=== PATIENT | female | born 1935 | race Caucasian/White ===

== ENCOUNTER 2022-05-16 11:03 | Emergency (ER) | payer MEDICARE, BC, SELFPAY ==
[2022-05-16 11:16] VITALS: BP 124/66; PULSE 63; RESP 18; TEMP 36.2; O2SAT 99; BMI 29.1
[2022-05-16 12:14] LABS: PCR FLU A Negative PCR FLU A (Negative); PCR FLU B Negative PCR FLU B (Negative); PCR RSV Negative PCR RSV (Negative)
[2022-05-16 12:17] LABS: SARS PCR* Negative SARS-CoV-2 (Negative)
--- NOTE | 2022-05-16 13:06 | ED.NURSE ---
was informed of negative tests-swabs per dmitri wright rn.
--- NOTE | 2022-05-16 13:24 | ED.GENADULT ---
HPI - General Adult General Date Seen: 05/16/22 Chief complaint: Unspecified Complaint, Adult Stated complaint: Sore throat Time Seen by Provider: 05/16/22 11:18 Source: patient and family History of Present Illness HPI narrative: Patient is an 87-year-old woman who is here with her daughter. Her daughter has a sore throat and some congestion. Apparently someone at their apartment complex has COVID. Her daughter is being tested for COVID and felt that her mother should be tested as well. Patient herself does not have any symptoms. She is being tested because her daughter wants her to. Related Data Home Medications Medication Instructions Recorded Confirmed albuterol sulfate 90 mcg/actuation 2 puff inhalation Q4H PRN 05/16/22 05/16/22 aerosol inhaler (Ventolin HFA) aspirin 81 mg capsule 81 mg PO DAILY 05/16/22 05/16/22 escitalopram oxalate 5 mg tablet 5 mg PO DAILY 05/16/22 05/16/22 famotidine 20 mg tablet 20 mg PO DAILY 05/16/22 05/16/22 furosemide 20 mg tablet 20 mg PO DAILY 05/16/22 05/16/22 losartan 100 mg tablet 100 mg PO DAILY 05/16/22 05/16/22 Allergies Allergy/AdvReac Type Severity Reaction Status Date / Time No Known Drug Allergies Allergy Verified 05/16/22 11:22 [facility] Social History Smoking Status: Never smoker Do you use any of these nicotine containing products: None Second hand tobacco smoke exposure: No How often do you have a drink containing alcohol: never AUDIT-C Alcohol total score: 0 Non-prescribed substance use: denies use Exam Narrative: Exam Narrative: Vital signs as noted above. In general, an alert, well-appearing patient. Head: Normocephalic, atraumatic. Eyes: Pupils are equal reactive. Extraocular movements are full. Conjunctivae are normal. ENT: Mucous membranes are moist. Throat is normal. Neck: Supple without lymphadenopathy. Heart: Regular rate and rhythm. No murmur or rub. Lungs: Clear bilaterally. No increased work of breathing, crackles or wheezes. Extremities: Well perfused. No edema. No calf tenderness. Pulses intact. Neurologic: Patient is alert and oriented to person and place. Speech is fluent. Face is symmetric. Moves all extremities equally. Affect: Normal. Skin: Warm and dry. Well perfused. Const: Vital Signs, click to edit/add: Vital Signs - 24 hr 05/16/22 11:16 Temperature 97.2 F L Pulse Rate [Pulse Oximeter] 63 Respiratory Rate 18 Blood Pressure [Ri ght Upper Arm] 124/66 Pulse Oximetry 99 Oxygen Delivery Me thod Room Air Documenting provider has reviewed patient's vital signs: yes Course Course Hospital Course: Patient is very pleasant, well-appearing. She is asymptomatic. We did do a triple swab. They are going to leave and will call with results. Patient does have a history of renal insufficiency, but she is not interested in doing a creatinine here. Understands that on the off chance her COVID test is positive that if she wants to start Paxlovid she would need to check in with her primary doctor and get a creatinine done before that could be prescribed. Vital Signs Vital signs: Initial Vital Signs Temperature 97.2 F L 05/16/22 11:16 Temperature Source Temporal Artery Scan 05/16/22 11:16 Pulse Rate 63 05/16/22 11:16 Respiratory Rate 18 05/16/22 11:16 Blood Pressure 124/66 05/16/22 11:16 Blood Pressure Mean 85 05/16/22 11:16 Blood Pressure Position Sitting 05/16/22 11:16 Pulse Oximetry 99 05/16/22 11:16 Oxygen Delivery Method 05/16/22 11:16 Vital Signs Temperature 97.2 F L 05/16/22 11:16 Pulse Rate 63 05/16/22 11:16 Respiratory Rate 18 05/16/22 11:16 Blood Pressure 124/66 05/16/22 11:16 Pulse Oximetry 99 05/16/22 11:16 Oxygen Delivery Method 05/16/22 11:16 Temperature 97.2 F L 05/16/22 11:16 Pulse Rate 63 05/16/22 11:16 Respiratory Rate 18 05/16/22 11:16 Blood Pressure 124/66 05/16/22 11:16 Pulse Oximetry 99 05/16/22 11:16 Oxygen Delivery Method 05/16/22 11:16 Medical Decision Making Lab Data Labs: Lab Results 05/16/22 Range/Units 11:27 SARS-CoV-2 (PCR) Negative SARS-CoV-2 (Negative) Influenza Type A (PCR) Negative PCR FLU A (Negative) Influenza Type B (PCR) Negative PCR FLU B (Negative) RSV (PCR) Negative PCR RSV (Negative) Discharge Plan Discharge Clinical Impression: Exposure to COVID-19 virus Patient Disposition: Home, Self-Care Condition: Stable Instructions: COVID-19 (Coronavirus Disease 2019) (ED) Additional Instructions: If COVID test is positive, you would be a candidate for Paxlovid. However, with your history of renal disease, you would need a creatinine drawn to determine the appropriate dose. Therefore, you would need to talk with your primary doctor to get this drawn and have that medication prescribed through your primary clinic in the next 1-2 days. This medication should be started within 5 days of symptom onset. Prescriptions: No Action losartan 100 mg tablet 100 mg PO DAILY Label Comments: TAKE 1 TABLET (100 MG) BY MOUTH ONCE DAILY. furosemide 20 mg tablet 20 mg PO DAILY Label Comments: TAKE 1 TABLET (20 MG) BY MOUTH EVERY MORNING. aspirin 81 mg capsule 81 mg PO DAILY famotidine 20 mg tablet 20 mg PO DAILY albuterol sulfate [Ventolin HFA] 90 mcg/actuation HFA aerosol inhaler 2 puff INHALATION Q4H PRN Label Comments: INHALE 1-2 PUFFS BY MOUTH EVERY 4 HOURS IF NEEDED FOR SHORTNESS OF BREATH OR WHEEZING. escitalopram oxalate 5 mg tablet 5 mg PO DAILY Label Comments: TAKE 1 TABLET (5 MG) BY MOUTH EVERY MORNING. Follow Up/Referrals: Provider,Not a Local [Primary Care Provider] - Stand Alone Forms: [employer] Info Instructions
== END 2022-05-16 12:10 | disposition home or self-care (01) ==
LOC: ED 11:53
PROVIDERS: Emergency Provider Emergency Medicine
DX: Z20.822 Contact with and (suspected) exposure to COVID-19 (principal)
CPT/HCPCS: 87502; 87634; 87635; 99282; 99283

== ENCOUNTER 2023-02-02 11:02 | Outpatient (CLI) | payer MEDICARE, BC, SELFPAY | END 2023-02-02 11:03 | disposition home or self-care (01) | PROVIDERS: Visit Provider Family Medicine | DX: I10 Essential (primary) hypertension (principal); N18.4 Chronic kidney disease, stage 4 (severe); D63.1 Anemia in chronic kidney disease; E78.2 Mixed hyperlipidemia; F41.1 Generalized anxiety disorder | CPT/HCPCS: 80048; 80061; 84439; 84443; 85025 ==

== ENCOUNTER 2023-08-15 09:32 | Outpatient (CLI) | payer MEDICARE, BC, SELFPAY | END 2023-08-15 09:33 | disposition home or self-care (01) | PROVIDERS: PCP Family Medicine; Visit Provider Family Medicine | DX: I10 Essential (primary) hypertension (principal); N18.4 Chronic kidney disease, stage 4 (severe); D63.1 Anemia in chronic kidney disease | CPT/HCPCS: 80048; 85025 ==

== ENCOUNTER 2023-08-23 16:23 | Outpatient (CLI) | payer MEDICARE, BC, SELFPAY ==
--- NOTE | 2023-08-23 16:45 | CT_ITS ---
Patient: NIGEL WHEELER Facility:?[facility] Patient ID:?[id number] Site Patient ID:?[id number]. Site :?[id number] Study:?CT-Extremity Left SHOULDER W/O-08/23/2023 5:28:09 PM Ordering Physician:JOSE J Final Report: EXAM: CT OF THE LEFT SHOULDER, WITHOUT CONTRAST CLINICAL INDICATION: Greater tuberosity fracture and recent anterior dislocation. COMPARISON PLAIN FILMS: 08/17/2023. COMPARISON CROSS-SECTIONAL IMAGING STUDIES: None. TECHNICAL: CT of the shoulder with axial images. Sagittal oblique and coronal oblique images were created. FINDINGS: OSSEOUS STRUCTURES: Humerus: Fracture of the majority of the greater tuberosity with slight spurring anteriorly. The greater tuberosity fracture fragment is displaced superiorly to 2 cm and posteriorly 2 0 cm. No fracture in the posterior superior humeral head. No lesser tuberosity fracture. Small amount of cystic change at the lesser tuberosity. Glenoid: No fracture including the anterior inferior glenoid. Acromion, Scapular body, Clavicle and Ribs: No fracture or osseous lesion. GLENOHUMERAL JOINT: Joint Fluid: Glenohumeral joint effusion. No calcific loose body. Joint Space: Mild hypertrophic change without joint space narrowing. MUSCLES: Rotator Cuff: No muscle atrophy. Other Muscles: No intramuscular hematoma. No muscle atrophy. CORACOACROMIAL ARCH: Morphology: Type 2 acromion. Mild lateral downsloping. Small subacromial enthesophyte. Acromiohumeral Interval: Normal. Coracohumeral Interval: Normal. Bursa: No fluid in the subacromial subdeltoid bursa. ACROMIOCLAVICULAR JOINT: Moderate arthropathy. SOFT TISSUES: There is a hematoma with fluid fluid level in the axilla anterior to the subscapularis, lateral to the brachial plexus and posterior to the pectoralis major that measures 3.5 x 3.4 x 3.9 cm in size. IMPRESSION: 1. Displaced greater tuberosity fracture. 2. No glenoid fracture. 3. Hematoma in the axilla. 4. Mild hypertrophic change of the glenohumeral joint. 5. Moderate arthropathy of the acromioclavicular joint. 6. Mild lateral downsloping of the acromion and small subacromial enthesophyte. Please note that all CT scans at this facility use dose modulation, iterative reconstruction, and/or weight-based dosing when appropriate to reduce radiation dose to as low as reasonably achievable. Dictated by Shorty Denis MD @ 08/24/2023 8:30:23 AM Signed by:?Shorty Denis MD @08/24/2023 8:30:23 AM (Electronic Signature)
== END 2023-08-23 16:24 | disposition home or self-care (01) ==
LOC: CT 16:24
PROVIDERS: Visit Provider Physician Assistant
DX: S42.302A Unspecified fracture of shaft of humerus, left arm, initial encounter for closed fracture (principal)
CPT/HCPCS: 73200

== ENCOUNTER 2023-11-16 11:19 | Outpatient (CLI) | payer MEDICARE, BC, SELFPAY | END 2023-11-16 11:20 | disposition home or self-care (01) | LOC: NFLDREF 11:19 | PROVIDERS: PCP Family Medicine; Visit Provider Family Medicine | DX: N18.4 Chronic kidney disease, stage 4 (severe) (principal) | CPT/HCPCS: 80048 ==

== ENCOUNTER 2023-11-22 10:28 | Emergency (ER) | payer MEDICARE, BC, SELFPAY ==
[2023-11-22 10:45] VITALS: BP 115/67; PULSE 74; RESP 16; TEMP 36.9; O2SAT 94; BMI 27.1
--- NOTE | 2023-11-22 11:30 | ED_ITS ---
HPI - Dizziness General Chief Complaint: Dizziness/Vertigo Stated Complaint: dizzy, fell, previously had covid Time Seen by Provider: 11/22/23 11:13 History of Present Illness HPI Narrative: This 88-year-old female comes in reporting some intermittent episodes of vertigo. He has been in current over the past several days. She has not fallen but has felt unsteady when this occurs and has had to correct herself to prevent a fall. She states that she does not feel these symptoms all the time. It seems to occur more when getting up from a sitting or lying position. She recently had COVID and did take a medicine but has completed that course. She does not report any visual changes or speech changes. She does not have any unilateral weakness. She does not report a headache. She normally uses a walker for ambulating. Related Data Home Medications ?Medication ?Instructions ?Recorded ?Confirmed aspirin 81 mg capsule 81 mg PO DAILY 05/16/22 11/16/23 calcium carbonate 1,000 mg PO DAILY 01/28/23 11/16/23 loperamide 2 mg capsule 2 mg PO .as needed PRN 01/28/23 11/16/23 multivitamin 1 tab PO QDAY 01/28/23 11/16/23 vitamin E mixed 400 unit capsule 400 unit PO QDAY 02/02/23 11/16/23 systaine eye drops instillation TID 02/14/23 11/16/23 Previous Rx's ?Medication ?Instructions ?Recorded albuterol sulfate 90 mcg/actuation 2 puff inhalation Q4H PRN 04/30/23 aerosol inhaler (Ventolin HFA) shortness of breath or wheezing #8.5 grams cyclobenzaprine 5 mg tablet 5 mg PO TID PRN muscle spasm #30 05/11/23 tabs escitalopram oxalate 10 mg tablet 5 mg (1/2 x 10 mg) PO DAILY #45 08/15/23 tabs famotidine 20 mg tablet 20 mg PO DAILY #90 tabs 08/15/23 furosemide 20 mg tablet 20 mg PO DAILY #90 tabs 08/15/23 losartan 100 mg tablet 100 mg PO DAILY #90 tabs 08/15/23 meclizine 25 mg tablet 25 mg PO QID #20 tabs 11/22/23 Allergies Allergy/AdvReac Type Severity Reaction Status Date / Time COY Inhibitors AdvReac Unknown Cough Verified 11/16/23 10:48 Review of Systems Status of ROS: Reports: 10 or more systems reviewed and unremarkable except as noted in History and below Narrative: Constitutional: No fevers, no weight gain or loss. Eyes: No discharge. No vision changes. HENT: No congestion, no sore throat, no ear pain. Cardiovascular: No chest pain, no palpitations. Respiratory: No shortness of breath, no wheezes, no cough. Gastrointestinal: No abdominal pain, no vomiting, no diarrhea. Genitourinary: No dysuria, no hematuria. Musculoskeletal: Normal range of motion. Skin: No rashes, no pruritis. Neurological: No weakness, sensory change, speech change. Vertigo symptoms as described above. Endo/Heme/Allergies: No bruising or bleeding. No polydipsia. Pysch: no suicidality, no anxiety, no insomnia. All other systems reviewed and are negative. [facility] Medical History Depression ?F32.A - Depression, unspecified (ICD-10) Asthma ?J45.909 - Unspecified asthma, uncomplicated (ICD-10) Bilateral knee pain ?M25.561 - Pain in right knee (ICD-10) ?M25.562 - Pain in left knee (ICD-10) Durable power of deputy prosecuting attorney in chart Fuchs' corneal dystrophy of both eyes ?H18.513 - Endothelial corneal dystrophy, bilateral (ICD-10) Hearing loss ?H91.90 - Unspecified hearing loss, unspecified ear (ICD-10) Mild intermittent asthma without complication ?J45.20 - Mild intermittent asthma, uncomplicated (ICD-10) Osteoporosis ?M81.0 - Age-related osteoporosis without current pathological fracture (ICD- 10) Age-related cognitive decline ?R41.81 - Age-related cognitive decline (ICD-10) Secondary hyperparathyroidism ?N25.81 - Secondary hyperparathyroidism of renal origin (ICD-10) Anemia in chronic kidney disease ?N18.9 - Chronic kidney disease, unspecified (ICD-10) ?D63.1 - Anemia in chronic kidney disease (ICD-10) Stage 4 chronic kidney disease ?N18.4 - Chronic kidney disease, stage 4 (severe) (ICD-10) Lumbar spinal stenosis ?M48.061 - Spinal stenosis, lumbar region without neurogenic claudication (ICD-10) Schatzki's ring of distal esophagus ?K22.2 - Esophageal obstruction (ICD-10) Generalized anxiety disorder ?F41.1 - Generalized anxiety disorder (ICD-10) Irritable bowel syndrome (IBS) ?K58.9 - Irritable bowel syndrome without diarrhea (ICD-10) GERD (gastroesophageal reflux disease) ?K21.9 - Gastro-esophageal reflux disease without esophagitis (ICD-10) Mixed hyperlipidemia ?E78.2 - Mixed hyperlipidemia (ICD-10) Primary hypertension ?I10 - Essential (primary) hypertension (ICD-10) Surgical History Swallowing study performed ?Z13.810 - Encounter for screening for upper gastrointestinal disorder (ICD- 10) History of esophagogastroduodenoscopy (EGD) (09/21/22) ?Z98.890 - Other specified postprocedural states (ICD-10) History of abdominal hysterectomy (2008) ?Z90.710 - Acquired absence of both cervix and uterus (ICD-10) History of hammer toe correction (08/17/21) ?Z98.890 - Other specified postprocedural states (ICD-10) ?Z87.39 - Personal history of other diseases of the musculoskeletal system and connective tissue (ICD-10) History of corneal transplant ?Z94.7 - Corneal transplant status (ICD-10) History of total bilateral knee replacement ?Z96.653 - Presence of artificial knee joint, bilateral (ICD-10) History of cataract surgery (09/25/07) ?Z98.49 - Cataract extraction status, unspecified eye (ICD-10) Social History Narrative: , six kids, retired, nonsmoker, no EtOH What is your current living situation?: I presently have a place to live Problems where you live: no known problems In the past 12 months, utilities in danger of being shut off: no In past 12 months, lack of transportation kept you from medical appts, meetings, work, or getting things needed for daily living: no In the past 12 mos, have been you worried that your food would run out before you had money to buy more?: never true In the past 12 mos, the food you bought just didn't last and you didn't have money to buy more?: never true Smoking Status: Never smoker Do you use any of these nicotine containing products: None Second hand tobacco smoke exposure: No How often do you have a drink containing alcohol: never AUDIT-C Alcohol total score: 0 Non-prescribed substance use: denies use How often does anyone, including family, friends and others, physically hurt you : never How often does anyone, including family, friends and others, insult or talk down to you: never How often does anyone, including family, friends and others, threaten you with harm: never How often does anyone, including family, friends and others, scream or curse at you: rarely Little interest or pleasure in doing things: not at all Feeling down, depressed, or hopeless: several days Exam Narrative: Exam Narrative: Constitutional: Well-developed, well-nourished, no acute distress. HEENT: Normocephalic, atraumatic. Neck: Normal range of motion. Nontender. Supple. Heart: Regular. No murmurs. Normal rate. Intact distal pulses. Lungs: Clear to auscultation. No chest discomfort. No wheezes, rhonchi, or rales. Abdomen: Normal bowel sounds. Nontender. No rebound tenderness. Genitalia: Deferred. Back: No midline tenderness. Normal range of motion. Extremities: Normal range of motion. No injury. Skin: Intact. No rash. Warm. No erythema or pallor. Neurologic: No altered sensation. No weakness. Alert and oriented. No facial asymmetry. Tongue is midline. [id number] is normal. No pronator drift. [employer] strength is equal bilaterally. Able to raise each leg from the bed. Psychiatric: No suicidality. No anxiety or depression. No insomnia. Nursing notes and vitals signs are reviewed. Const: Vital Signs, click to edit/add: Vital Signs - 24 hr 11/22/23 10:45 Temperature 98.4 F Pulse Rate [Right Pulse Oximeter] 74 Respiratory Rate 16 Blood Pressure [Ri ght Upper Arm] 115/67 Pulse Oximetry 94 Oxygen Delivery Me thod Room Air Course Vital Signs Vital signs: Initial Vital Signs Temperature 98.4 F 11/22/23 10:45 Temperature Source Temporal Artery Scan 11/22/23 10:45 Pulse Rate 74 11/22/23 10:45 Pulse Rhythm Regular 11/22/23 10:45 Respiratory Rate 16 11/22/23 10:45 Blood Pressure 115/67 11/22/23 10:45 Blood Pressure Mean 83 11/22/23 10:45 Blood Pressure Position Sitting 11/22/23 10:45 Pulse Oximetry 94 11/22/23 10:45 Oxygen Delivery Method Room Air 11/22/23 10:45 Vital Signs Temperature 98.4 F 11/22/23 10:45 Pulse Rate 74 11/22/23 10:45 Respiratory Rate 16 11/22/23 10:45 Blood Pressure 115/67 11/22/23 10:45 Pulse Oximetry 94 11/22/23 10:45 Oxygen Delivery Method Room Air 11/22/23 10:45 Temperature 98.4 F 11/22/23 10:45 Pulse Rate 74 11/22/23 10:45 Respiratory Rate 16 11/22/23 10:45 Blood Pressure 115/67 11/22/23 10:45 Pulse Oximetry 94 11/22/23 10:45 Oxygen Delivery Method Room Air 11/22/23 10:45 MDM - Dizziness MDM Narrative Medical decision making narrative: This patient comes in reporting some brief episodes of vertigo symptoms over the past few days. She states that she normally does not feel any vertigo symptoms but with certain position her change in activity she does feel some sense of movement or spinning. She has a normal vital signs and normal neurologic exam. She is not showing any sign of central vertigo. Most likely this is a peripheral disturbance. I did discuss lab and imaging options which the patient declined. She did receive an oral dose of meclizine. A prescription for the same is provided also. Discharge Plan Discharge Clinical Impression: Vertigo Patient Disposition: Home w/ Parent or Adult Condition: Stable Additional Instructions: Take medication as needed and directed. Use walker for ambulating. Follow up with MD or return if symptoms are worsening. Prescriptions: New meclizine 25 mg tablet 25 mg PO QID Qty: 20 0RF No Action systaine eye drops instillation TID furosemide 20 mg tablet 20 mg PO DAILY Qty: 90 1RF escitalopram oxalate 10 mg tablet 5 mg PO DAILY Qty: 45 1RF famotidine 20 mg tablet 20 mg PO DAILY Qty: 90 1RF losartan 100 mg tablet 100 mg PO DAILY Qty: 90 1RF calcium carbonate 500 mg calcium (1,250 mg) tablet 1,000 mg PO DAILY loperamide 2 mg capsule 2 mg PO .as needed PRN multivitamin Tablet 1 tab PO QDAY vitamin E mixed 400 unit capsule 400 unit PO QDAY aspirin 81 mg capsule 81 mg PO DAILY albuterol sulfate [Ventolin HFA] 90 mcg/actuation HFA aerosol inhaler 2 puff INHALATION Q4H PRN (Reason: shortness of breath or wheezing) Qty: 8.5 1RF Patient Comments: INHALE 1-2 PUFFS BY MOUTH EVERY 4 HOURS IF NEEDED FOR SHORTNESS OF BREATH OR WHEEZING. cyclobenzaprine 5 mg tablet 5 mg PO TID PRN (Reason: muscle spasm) Qty: 30 0RF Follow Up/Referrals: Blair Fletcher MD [Primary Care Provider] - Stand Alone Forms: [employer] Info Instructions
[2023-11-22] MEDS: MECLIZINE HCL 25 MG TABLET PO (11:37)
== END 2023-11-22 11:45 | disposition home or self-care (01) ==
LOC: ED 11:39
PROVIDERS: Emergency Provider Emergency Medicine Emergency Medical Services; PCP Family Medicine
DX: R42 Dizziness and giddiness (principal)
CPT/HCPCS: 99283; 99284; A9270

== ENCOUNTER 2024-03-08 13:57 | Emergency (ER) | payer MEDICARE, BC, SELFPAY ==
[2024-03-08 14:08] VITALS: BP 123/70; PULSE 97; RESP 20; TEMP 36.6; O2SAT 95; BMI 25.6
--- NOTE | 2024-03-08 14:33 | ED.GENADULT ---
HPI - General Adult General Time Seen by Provider: 14:33 Date Seen: 03/08/24 Chief complaint: Back Injury/Pain Stated complaint: R side pain Time Seen by Provider: 03/08/24 14:26 Source: patient and RN notes reviewed Mode of arrival: ambulatory Limitations: no limitations History of Present Illness HPI narrative: Nigel is an 89-year-old female accompanied by her daughter coming in with left low back pain. She is able to sit up, points to her left low back where her pain is. Went over her upper back and midback, she denies having pain in that area. She denies her back bothering her much with walking. She notes she is having problem getting in and out of bed. She has a recent history of left humerus fracture/dislocation that was managed non operatively, injury happened in July. Her left shoulder is feeling better from that but it is still somewhat sore per her report. She is able to use her cane on that side now however. She started complaining of more right shoulder pain and was going to physical therapy. The thought was she was having overuse of her right side from non use of the left due to the injury. She resides with her daughter and does have help at home. She denies any history of sciatica but her daughter believes she has had before. She is not currently having pain go down either leg, no numbness tingling into her legs. She denies any bowel or bladder issues. No fevers or chills, does not feel the pain is ?inside?. There is no abdominal pain. No pain in her chest. She may have historically been on a statin but she is no longer on 1. Related Data Home Medications ?Medication ?Instructions ?Recorded ?Confirmed aspirin 81 mg capsule 81 mg PO DAILY 05/16/22 02/07/24 calcium carbonate 1,000 mg PO DAILY 01/28/23 03/08/24 loperamide 2 mg capsule 2 mg PO .as needed PRN 01/28/23 03/08/24 vitamin E mixed 400 unit capsule 400 unit PO QDAY 02/02/23 02/07/24 systaine eye drops instillation TID 02/14/23 02/07/24 cholecalciferol (vitamin D3) 50 50 mcg PO QDAY 11/25/23 02/07/24 mcg (2,000 unit) capsule Previous Rx's ?Medication ?Instructions ?Recorded albuterol sulfate 90 mcg/actuation 2 puff inhalation Q4H PRN 04/30/23 aerosol inhaler (Ventolin HFA) shortness of breath or wheezing #8.5 grams furosemide 20 mg tablet 20 mg PO DAILY #90 tabs 08/15/23 meclizine 25 mg tablet 25 mg PO QID #20 tabs 11/22/23 escitalopram oxalate 5 mg tablet 5 mg PO DAILY #90 tabs 02/02/24 famotidine 20 mg tablet 20 mg PO DAILY #90 tabs 02/02/24 losartan 100 mg tablet 100 mg PO DAILY #90 tabs 02/02/24 Allergies Allergy/AdvReac Type Severity Reaction Status Date / Time COY Inhibitors AdvReac Unknown Cough Verified 02/07/24 13:11 Review of Systems Status of ROS: Reports: 6 or more systems reviewed and unremarkable except as noted in History and below [facility] Medical History Depression ?F32.A - Depression, unspecified (ICD-10) Asthma ?J45.909 - Unspecified asthma, uncomplicated (ICD-10) Bilateral knee pain ?M25.561 - Pain in right knee (ICD-10) ?M25.562 - Pain in left knee (ICD-10) Durable power of traffic law attorney in chart Fuchs' corneal dystrophy of both eyes ?H18.513 - Endothelial corneal dystrophy, bilateral (ICD-10) Hearing loss ?H91.90 - Unspecified hearing loss, unspecified ear (ICD-10) Mild intermittent asthma without complication ?J45.20 - Mild intermittent asthma, uncomplicated (ICD-10) Osteoporosis ?M81.0 - Age-related osteoporosis without current pathological fracture (ICD-10) Age-related cognitive decline ?R41.81 - Age-related cognitive decline (ICD-10) Secondary hyperparathyroidism ?N25.81 - Secondary hyperparathyroidism of renal origin (ICD-10) Anemia in chronic kidney disease ?N18.9 - Chronic kidney disease, unspecified (ICD-10) ?D63.1 - Anemia in chronic kidney disease (ICD-10) Stage 4 chronic kidney disease ?N18.4 - Chronic kidney disease, stage 4 (severe) (ICD-10) Lumbar spinal stenosis ?M48.061 - Spinal stenosis, lumbar region without neurogenic claudication (ICD-10) Schatzki's ring of distal esophagus ?K22.2 - Esophageal obstruction (ICD-10) Generalized anxiety disorder ?F41.1 - Generalized anxiety disorder (ICD-10) Irritable bowel syndrome (IBS) ?K58.9 - Irritable bowel syndrome without diarrhea (ICD-10) GERD (gastroesophageal reflux disease) ?K21.9 - Gastro-esophageal reflux disease without esophagitis (ICD-10) Mixed hyperlipidemia ?E78.2 - Mixed hyperlipidemia (ICD-10) Primary hypertension ?I10 - Essential (primary) hypertension (ICD-10) Surgical History Swallowing study performed ?Z13.810 - Encounter for screening for upper gastrointestinal disorder (ICD-10) History of esophagogastroduodenoscopy (EGD) (09/21/22) ?Z98.890 - Other specified postprocedural states (ICD-10) History of abdominal hysterectomy (2008) ?Z90.710 - Acquired absence of both cervix and uterus (ICD-10) History of hammer toe correction (08/17/21) ?Z98.890 - Other specified postprocedural states (ICD-10) ?Z87.39 - Personal history of other diseases of the musculoskeletal system and connective tissue (ICD-10) History of corneal transplant ?Z94.7 - Corneal transplant status (ICD-10) History of total bilateral knee replacement ?Z96.653 - Presence of artificial knee joint, bilateral (ICD-10) History of cataract surgery (09/25/07) ?Z98.49 - Cataract extraction status, unspecified eye (ICD-10) Social History Narrative: , six kids, retired, nonsmoker, no EtOH What is your current living situation?: I presently have a place to live Problems where you live: no known problems In the past 12 months, utilities in danger of being shut off: no In past 12 months, lack of transportation kept you from medical appts, meetings, work, or getting things needed for daily living: no In the past 12 mos, have been you worried that your food would run out before you had money to buy more?: never true In the past 12 mos, the food you bought just didn't last and you didn't have money to buy more?: never true Smoking Status: Never smoker Do you use any of these nicotine containing products: None Second hand tobacco smoke exposure: No How often do you have a drink containing alcohol: never How often do you have six or more drinks on one occasion: Never AUDIT-C Alcohol total score: 0 Non-prescribed substance use: denies use How often does anyone, including family, friends and others, physically hurt you: never How often does anyone, including family, friends and others, insult or talk down to you: never How often does anyone, including family, friends and others, threaten you with harm: never How often does anyone, including family, friends and others, scream or curse at you: rarely Little interest or pleasure in doing things: not at all Feeling down, depressed, or hopeless: several days service: No Exam Const: Vital Signs, click to edit/add: Vital Signs - 24 hr 03/08/24 14:08 Temperature 97.9 F Pulse Rate [Right Radial] 97 Respiratory Rate 20 Blood Pressure [Ri ght Upper Arm] 123/70 Pulse Oximetry 95 Oxygen Delivery Me thod Room Air Nigel is an 89-year-old female that is alert, interactive, no apparent distress, very well kept. She sits up easily in bed on her own, no use of her arms. Takes her left arm and points to her left low back where her pain is. Pupils equal round reactive, sclera clear, face atraumatic, speech normal. She has mild kyphosis, lungs are clear, good air entry, no wheezing or crackles, no tachypnea. She has no midline tenderness through the entirety of her spine. There is left paraspinous tenderness to little further out in closer to the iliac crest where she states there is some reproducible muscular tenderness. No overlying skin change noted. Abdomen is soft, nontender, nondistended, no organomegaly. She can straight leg raise off the bed, can lift each of her legs independently off the bed. There is no evidence of any radiculopathy on examination of her lower extremities. Strength is symmetrical and good throughout both of her lower extremities. Documenting provider has reviewed patient's vital signs: yes Course Course ED Course: Reviewed with patient that we can look at some plain films of her lumbar spine just to see underlying architecture, ensure no new compression fracture. She does not seem to have radiculopathy on history or physical examination which is reassuring. This certainly does seem to be musculoskeletal on physical exam. Reevaluation(s) Time of Reevaluation #1: 16:33 Reevaluation #1: Did review x-ray report with patient. When I went back in, she was fully dressed, is sitting up on the bed, right leg down on the floor left leg stretched out on the bed in front of her. She seems quite comfortable. Did review that there is degenerative changes in her spine but no visible compression fractures. I think that this is more musculoskeletal at this time, certainly no evidence for any radiculopathy. We discussed muscle relaxants but I do have concern at her age that they could increase her risk of falling, she seems rather comfortable. We discussed using conservative management with scheduled Tylenol, she can try some heat to her back and see if this helps, continue with physical therapy which is scheduled on Tuesday. Vital Signs Vital signs: Initial Vital Signs Temperature 97.9 F 03/08/24 14:08 Temperature Source Temporal Artery Scan 03/08/24 14:08 Pulse Rate 97 03/08/24 14:08 Pulse Rhythm Regular 03/08/24 14:08 Respiratory Rate 20 03/08/24 14:08 Blood Pressure 123/70 03/08/24 14:08 Blood Pressure Mean 87 03/08/24 14:08 Pulse Oximetry 95 03/08/24 14:08 Oxygen Delivery Method Room Air 03/08/24 14:08 Vital Signs Temperature 97.9 F 03/08/24 14:08 Pulse Rate 97 03/08/24 14:08 Respiratory Rate 20 03/08/24 14:08 Blood Pressure 123/70 03/08/24 14:08 Pulse Oximetry 95 03/08/24 14:08 Oxygen Delivery Method Room Air 03/08/24 14:08 Temperature 97.9 F 03/08/24 14:08 Pulse Rate 97 03/08/24 14:08 Respiratory Rate 20 03/08/24 14:08 Blood Pressure 123/70 03/08/24 14:08 Pulse Oximetry 95 03/08/24 14:08 Oxygen Delivery Method Room Air 03/08/24 14:08 Medical Decision Making Imaging Data XR lumbar spine: Attestation: I have reviewed the pertinent imaging results. My impression: Did visualize her x-rays, do see some degenerative change but do not appreciate any significant compression fractures. Will await Radiology over-read. Radiologist's impression: Patient: NIGEL WHEELER Facility:?[facility] Patient ID:?[id number] Site Patient ID:?[id number]. Site :?[id number] Study:?XRay-Spine Lumbar 2 VIEW-03/08/2024 3:51:43 PM Ordering Physician:?Evelyn Oleary Final Report: INDICATION: Left low back pain. TECHNIQUE: Lumbar spine 2 views. COMPARISON: None. FINDINGS: Bone demineralization. Leftward convex curvature. Grade 1 anterolisthesis of L3 on L4 and L4 on L5 is likely degenerative. Adwv-gu-rigevafy multilevel degenerative changes of the lumbar spine. No acute or other osseous abnormality. Vascular calcifications. IMPRESSION: Zlag-kt-smroxcrx lumbar degenerative changes. Dictated by Tu Horton MD @ 03/08/2024 4:28:36 PM (Electronic Signature) Discharge Plan Discharge Clinical Impression: Acute lumbar back pain Qualifiers: Back pain laterality: left Sciatica presence: without sciatica Qualified Code(s): M54.50 - Low back pain, unspecified Patient Disposition: Home, Self-Care Condition: Stable Instructions: Acute Low Back Pain (ED) Additional Instructions: Recommend some scheduled Tylenol, can use a 1000 mg 3 times a day right now for pain management. Can try some heat to this area of your back and see if it helps. If heat makes it worse, could see if ice makes it feel better. Continue with physical therapy. If you have further concerns or worsening symptoms, do recommend re-evaluation. Activity Level: Activity as Tolerated Prescriptions: No Action systaine eye drops instillation TID furosemide 20 mg tablet 20 mg PO DAILY Qty: 90 1RF calcium carbonate 500 mg calcium (1,250 mg) tablet 1,000 mg PO DAILY loperamide 2 mg capsule 2 mg PO .as needed PRN vitamin E mixed 400 unit capsule 400 unit PO QDAY cholecalciferol (vitamin D3) 50 mcg (2,000 unit) capsule 50 mcg PO QDAY aspirin 81 mg capsule 81 mg PO DAILY meclizine 25 mg tablet 25 mg PO QID Qty: 20 0RF albuterol sulfate [Ventolin HFA] 90 mcg/actuation HFA aerosol inhaler 2 puff INHALATION Q4H PRN (Reason: shortness of breath or wheezing) Qty: 8.5 1RF Patient Comments: INHALE 1-2 PUFFS BY MOUTH EVERY 4 HOURS IF NEEDED FOR SHORTNESS OF BREATH OR WHEEZING. famotidine 20 mg tablet 20 mg PO DAILY Qty: 90 1RF losartan 100 mg tablet 100 mg PO DAILY Qty: 90 1RF escitalopram oxalate 5 mg tablet 5 mg PO DAILY Qty: 90 1RF Follow Up/Referrals: Blair Fletcher MD [Primary Care Provider] - Stand Alone Forms: [employer] Info Instructions
--- NOTE | 2024-03-08 14:41 | CRLHL7_ITS ---
For Patients: As a result of the Cures Act, medical imaging exams and procedure reports are released immediately into your electronic medical record. You may view this report before your referring provider. If you have questions, please contact your health care provider. INDICATION: Left low back pain. TECHNIQUE: Lumbar spine 2 views. COMPARISON: None. FINDINGS: Bone demineralization. Leftward convex curvature. Grade 1 anterolisthesis of L3 on L4 and L4 on L5 is likely degenerative. Wuod-nb-munqvgul multilevel degenerative changes of the lumbar spine. No acute or other osseous abnormality. Vascular calcifications. IMPRESSION: Xntd-ho-wkowqaak lumbar degenerative changes. Dictated by Tu Horton MD @ 03/08/2024 4:28:36 PM (Electronically Signed)
== END 2024-03-08 16:45 | disposition home or self-care (01) ==
PROVIDERS: Emergency Provider Family Medicine; PCP Family Medicine
DX: M54.50 Low back pain, unspecified (principal)
CPT/HCPCS: 72100; 99283

== ENCOUNTER 2024-04-20 13:03 | Inpatient (IN) | payer MEDICARE, BC, SELFPAY ==
[2024-04-20] VITALS (9 sets, daily range): BP systolic 94–128; BP diastolic 61–70; PULSE 54–79; RESP 16; TEMP 36.3–36.7; O2SAT 96–98; BMI 27.4
--- OUTSIDE RECORDS SUMMARY | 2024-04-20 13:08 | XMS_ITS | Clinical Summary ---
Author Organization [facility] Address [place], [place] [address] Care Team Providers Care Relations Manager Name Role Phone Blair Fletcher MD Primary Care Provider + Allergies Active Allergy Reactions Criticality Noted Date Comments Toni Inhibitors Cough Low 11/12/2006 Medications Medication Sig Dispensed Refills Start Date End Date Status ASPIRIN 81 MG TAB, DELAYED RELEASE QD 0 11/09/2006 Active loperamide (IMODIUM) 2 mg tabletIndications:I rritable bowel syndrome with diarrhea Take 4mg by mouth with 1st loose stool, then 2mg with each subsequent loose stool. Max 16 mg in 24 hrs 0 12/25/2021 Active acetaminophen (Acetaminophen Extra Strength) 500 mg tabletIndications:S larisa stenosis of lumbar region, unspecified whether neurogenic claudication present,Muscle spasm of shoulder region Take 2 Tablets (1,000 mg) by mouth every 6 hours if needed for Pain. Max acetaminophen dose: 4000mg in 24 hrs. 60 Tablet 1 07/01/2022 Active Walker - 4 wheelsIndications:U nsteady gait,At risk for falling For home use. Length of need: 99 months. 1 Each 08/27/2022 Active losartan (COZAAR) 100 mg tabletIndications:H ypertension Take 1 Tablet (100 mg) by mouth once daily. 90 Tablet 3 12/31/2022 Active escitalopram oxalate (LEXAPRO) 5 mg tabletIndications:G eneralized anxiety disorder Take 1 Tablet (5 mg) by mouth every morning. 90 Tablet 3 12/31/2022 Active furosemide (LASIX) 20 mg tabletIndications:H ypertension, unspecified type Take 1 Tablet (20 mg) by mouth every morning. 90 Tablet 03/04/2023 Active Ventolin HFA 90 mcg/actuation inhalerIndications: Cough,Wheezing INHALE 1-2 PUFFS BY MOUTH EVERY 4 HOURS IF NEEDED FOR SHORTNESS OF BREATH OR WHEEZING. 18 g 3 05/01/2023 Active rx oxyCODONE 5 mg (ROXICODONE) tablet (ED DC MED)Indications:Tra umatic closed displaced fracture of left shoulder with anterior dislocation, initial encounter,Contusion of left eye, initial encounter Take 0.5-1 Tablets (2.5-5 mg) by mouth every 6 hours if needed for Pain. 4 Tablet 08/17/2023 Active Active Problems Problem Noted Date Diagnosed Date Schatzki's ring 09/02/2022 Chronic kidney disease, stage IV (severe) 2022 Low TSH level 01/31/2020 Acute left lumbar radiculopathy 12/12/2019 Protrusion of lumbar intervertebral disc 020 Lumbar nerve root impingement 11/21/2019 Spinal stenosis of lumbar region 11/21/2019 Left sided sciatica 10/15/2019 Age-related osteoporosis wit hout current pathological fracture 10/23/2018 Overview (10/23/2018): DEXA scan in 09/2018 GERD without esophagitis 10/04/2018 Mild intermittent asthma without complication Bilateral leg edema 06/05/2018 Wears hearing aid in both ears 06/05/2018 Irritable bowel syndrome with diarrhea 8 Gastroesophageal reflux disease without esophagi tis 09/20/2016 Generalized anxiety disorder 09/20/2016 Hypertension 04/17/2015 Hyperlipidemia 04/17/2015 Prolapse, uterovaginal 06/30/2008 Cystocele, midline 06/30/2008 Resolved Problems Problem Noted Date Diagnosed Date Resolved Date Tortuous colon 08/25/2016 09/20/2016 Status post total left knee replacement 04/29/2015 09/20/2016 Primary osteoarthritis of left knee 04/15/2015 04/29/2015 Hammer toe 03/02/2011 04/29/2015 Hammer toe 03/02/2011 03/02/2011 Other and unspecified hyperlipidemia 11/08/2006 04/17/2015 Unspecified essential hypertension 10/07/2006 04/17/2015 Change in bowel habits 09/20 Encounters Date Type Department Care Team Description 04/16/2024 8:52 AM COMMUNITY AFFAIRS MANAGER - 04/16/2024 11:59 PM COMMUNITY AFFAIRS MANAGER Hospital Encounter [address] [place] [address] Blair Fletcher MD Vinar, Kaylin J, SUBSTANCE ADDICTION COORDINATOR 04/16/2024 Travel 04/09/2024 9:18 AM COMMUNITY AFFAIRS MANAGER - 04/09/2024 11:59 PM COMMUNITY AFFAIRS MANAGER Hospital Encounter [address] [place] [address] Blair Fletcher MD Becken, Amy, PT 04/09/2024 Travel 04/02/2024 12:47 PM COMMUNITY AFFAIRS MANAGER - 04/02/2024 11:59 PM COMMUNITY AFFAIRS MANAGER Hospital Encounter [address] [place] [address] Blair Fletcher MD Vinar, Kaylin J, SUBSTANCE ADDICTION COORDINATOR 04/02/2024 Travel 03/26/2024 9:17 AM CDT - 03/26/2024 11:59 PM CDT Hospital Encounter [address] [address] Blair Fletcher MD Becken, Amy, PT 03/26/2024 Travel 03/19/2024 9:21 AM CDT - 03/19/2024 11:59 PM CDT Hospital Encounter [address] [address] Blair Fletcher MD Vinar, Kaylin J, SUBSTANCE ADDICTION COORDINATOR 03/19/2024 Travel 03/12/2024 12:44 PM CDT - 03/12/2024 11:59 PM CDT Hospital Encounter [address] [address] Blair Fletcher MD Vinar, Kaylin J, SUBSTANCE ADDICTION COORDINATOR 03/12/2024 Travel 03/05/2024 1:41 PM CDT - 03/05/2024 11:59 PM CDT Hospital Encounter [address] [place] [address] Blair Fletcher MD Becken, Amy, PT 03/05/2024 Travel 02/27/2024 7:49 AM CDT - 02/27/2024 11:59 PM CDT Hospital Encounter [address] [address] Blair Fletcher MD Becken, Amy, PT 02/27/2024 Travel 02/16/2024 10:45 AM CDT Office Visit [facility] [address] [place] [address] [facility] [place] [address] Jake Novoa, DPM Consult (Toenail fungus ) 02/16/2024 Travel 01/23/2024 11:30 AM CDT - 01/23/2024 11:59 PM CDT Hospital Encounter [address] [place] [address] Ella Santana, Casie Montague, SUBSTANCE ADDICTION COORDINATOR 01/23/2024 Travel from Last 3 Months Immunizations Name Administration Dates Next Due COVID-19 vaccine (Moderna 100mcg/0.5mL) NELSY CANSECO 03/28/2021,08/22/2020,07/25/2020 Influenza Virus, Unspecified 04/22/2010 Influenza, High-dose Inactivated 019,04/12/2018,03/03/2017,2015,02/07/2015 Influenza, High-dose Quadriv alent Inactivated 03/03/2022,03/05/2020 Influenza, IIV3 (Age 6-35 mos) 05/19/2009 Influenza, IIV3 (Age >=3 years) 03/15/20 14,03/07/2013,04/07/2012,2010,03/30/2011,05/19/2009,06/24/2008,1 06/25/2006 Influenza, IIV4 03/05/2021 Influenza, Inactivated IIV3 (Age 65+ Years) Preserv Free 03/13/2019,04/12/2018,04/13/2017 Pneumococcal Poly,23-Valent (Pneumovax) 07/22/2010 Pneumococcal conj 13-Valent (Prevnar 13) 09/15/2015,02/07/2015 Td, Preservative Free (age > = 7 Years) 06/24/2008 Tdap 05/28/2021 Zoster (Zostavax-ZVL, live) 03/02/2011 Family History Medical History Relation Name Comments Cancer-colon Father Shen Alcoholism Mother Cancer Mother Cancer-breast Sister Lymphoma Sister Anesthesia Problem No Family History Relation Name Status Comments Father Shen Colon Cancer Mother Sister Social History Tobacco Use Types Packs/Day Years Used Date Smoking Tobacco: Never Smokeless Tobacco: Never Tobacco Cessation:Counseling Given: Yes Alcohol Use Standard Drinks/Week Comments Not Currently 0 (1 standard drink = 0.6 oz pur e alcohol) PHQ-2 Answer Date Recorded PHQ-2 TOTAL SCORE 0 12/31/2022 Social Connections Answer Date Recorded Frequency of Communication with Friends and Fami ly Not on file 12/28/2022 Financial Resource Strain Answer Date R ecorded Difficulty of Paying Living Expenses 3 12/25/2021 Difficulty of Paying Living Expenses Not on file 12/25/2021 Food Insecurity Answer Date Recorded Worried About Running Out of Food in the Last Ye ar 1 12/25/2021 Transportation Needs Answer Date Record ed Lack of Transportation (Medical) 1 12/25/2021 Housing Stability Answer Date Recorded Unable to Pay for Housing in the Last Year 1 12/25/2021 Sex and Gender Information Value Date Recorded Sex Assigned at Not on file Gender Identity Not on file Sexual Orientation Not on file Obstetrics History Para Term AB IAB SAB Ectopic Multiple Livin g Live Births 6 6 6 0 0 0 0 1 6 Date Outcome GA Total Labor Labor/2nd/3rd Weight Sex Type Anes PTL Celia A1 A5 Name Clin Term Term Term Term Term Term Last Filed Vital Signs Vital Sign Reading Time Taken Comments Blood Pressure 133/89 08/17/2023 8:30 PM CDT Pulse 75 02/16/2024 10:33 AM CDT Temperature 36.6 C (97.8 F) 02/16/2024 10:33 AM CDT Respiratory Rate 16 08/17/2023 7:55 PM CDT Oxygen Saturation 98% 02/16/2024 10:33 AM CDT Inhaled Oxygen Concentration - - Weight 70.8 kg (156 lb) 08/17/2023 2:53 PM CDT Height 157.5 cm (5' 2) 08/17/2023 2:53 PM CDT Body Mass Index 28.53 08/17/2023 2:53 PM CDT Plan of Treatment Upcoming Encounters Date Type Department Care Team (Late st Contact Info) Description 04/23/2024 9:30 AM COMMUNITY AFFAIRS MANAGER Appointment [facility] [address] [place] [address] Patricia Romero, PT [address] [place] [address] 04/30/2024 9:30 AM COMMUNITY AFFAIRS MANAGER Appointment [facility] [address] [place] [address] Patricia Romero, PT [address] [place] [address] Health Maintenance Due Date Last Done Comments RSV vaccine for adults or (1 - 1-dose 75+ series) 02/25/2011 Zoster (shingles) series for age 50+ (2 of 3) 04/27/2011 03/02/2011 BMI (ht and wt on same day) for age 18+ 01/01/2024 12/31/2022, 08/27/2022, 02/08/2022, Additional history exists Depression screening for age 12+ 01/01/2024 12/31/2022, 08/31/2022, 12/25/2021, Additional history exists Medicare Wellness for age 65+ 01/01/2024, 12/25/2021, 12/24/2020, Additional history exists COVID-19 vaccine series ( season) 2024 03/07/2023, 03/03/2022, 03/28/2021, Additional history exists Influenza for age 65+ 01/29/2024 03/03/2022 , 03/05/2021, 03/05/2020, Additional history exists Tetanus booster 05/28/2031 05/28/2021, 06/24/2008 Pneumococcal series for age 65+ Completed 09/15/2015, 02/07/2015, 07/22/2010 DEXA/DXA scan for age 65+ Completed 2018, 09/06/2013, 07/22/2010, Additional history exists Tdap Completed 05/28/2021 Procedures Procedure Name Priority Date/Time Associated Diagnosis Comments XR DXA BONE DENSITY 2 SITES AXIAL Routine 10/16/2018 2:29 PM CDT Medicare annual wellness visit, subsequent Osteopenia, unspecified location Asymptomatic postmenopausal state from Last 3 Months or Most Recently Relevant to Health Maintenance Results * (ABNORMAL) XR DXA BONE DENSITY 2 SITES AXIAL (10/16/2018 2:29 PM CDT) Anatomical Region Laterality Modality Spine, HIPS, HIPL, HIPR Bone Den sitometry Narrative 10/19/2018 2:47 PM CDT Please see scanned document for results of this study. Mari Lujan DO DEXA from Last 3 Months or Most Recently Relevant to Health Maintenance Advance Directives * Full Code (Latest Code Status on File) Date Activated Date Inactivated Comments 09/21/2022 7:56 AM 09/21/2022 12:35 PM Question Answer Comments Code Status Discussion: Discussed * Full Code Date Activated Date Inactivated Comments 09/14/2016 8:17 AM 09/14/2016 1:15 PM Care Teams Relations Manager Relationship Specialty Start Date End Date Blair Fletcher MD [address] [place] [address] PCP - General Family Practice 03/04/23
--- NOTE | 2024-04-20 13:27 | CRLHL7_ITS ---
For Patients: As a result of the Century Cures Act, medical imaging exams and procedure reports are released immediately into your electronic medical record. You may view this report before your referring provider. If you have questions, please contact your health care provider. INDICATION: Fall COMPARISON: None. TECHNIQUE: Single view of the pelvis and two views of the left hip FINDINGS: Acute comminuted overall moderately displaced and angulated fracture of the left intertrochanteric femur. Minimal to mild degenerative change of the hips. Moderate to severe arthropathy of the pubic symphysis characterized by osteophytosis and prominent subchondral sclerosis. [id number] degenerative change of the sacroiliac joints. Partially imaged degenerative change of the lumbosacral spine. IMPRESSION: Acute comminuted overall moderately displaced and angulated fracture of the left intertrochanteric femur. Dictated by Grant Valdez MD @ 04/20/2024 2:25:01 PM (Electronically Signed)
--- NOTE | 2024-04-20 13:28 | CRLHL7_ITS ---
For Patients: As a result of the Cures Act, medical imaging exams and procedure reports are released immediately into your electronic medical record. You may view this report before your referring provider. If you have questions, please contact your health care provider. INDICATION: : Fall COMPARISON: None TECHNIQUE: One view(s) of the chest FINDINGS: The heart is within normal limits in size. Tortuous thoracic aorta. There is no focal airspace consolidation, pleural effusion, or pneumothorax. No displaced fractures. Degenerative changes of the shoulders and spine. IMPRESSION: No acute cardiopulmonary process or acute traumatic injury. Dictated by Alex Scott MD @ 04/20/2024 2:22:26 PM (Electronically Signed)
--- NOTE | 2024-04-20 13:29 | ED.FALL ---
HPI - Fall General Chief Complaint: Fall/Minor Trauma Stated Complaint: Fallen Time Seen by Provider: 04/20/24 13:07 History of Present Illness HPI Narrative: This 89-year-old female comes in because of an injury to her left hip. She lives at home and normally does well and ambulates with a walker. She lost her balance and fell hard onto her left hip and now has a shortened left leg that is externally rotated. She states that she did not hit her head or have any other injury. She does take baby aspirin daily and states that her last meal was at noon today, about an hour prior to arrival here. Related Data Home Medications ?Medication ?Instructions ?Recorded ?Confirmed aspirin 81 mg capsule 81 mg PO DAILY 05/16/22 04/18/24 calcium carbonate 1,000 mg PO DAILY 01/28/23 04/18/24 loperamide 2 mg capsule 2 mg PO .as needed PRN 01/28/23 04/18/24 vitamin E mixed 400 unit capsule 400 unit PO QDAY 02/02/23 04/18/24 systaine eye drops instillation TID 02/14/23 04/18/24 cholecalciferol (vitamin D3) 50 50 mcg PO QDAY 11/25/23 04/18/24 mcg (2,000 unit) capsule Previous Rx's ?Medication ?Instructions ?Recorded albuterol sulfate 90 mcg/actuation 2 puff inhalation Q4H PRN 04/30/23 aerosol inhaler (Ventolin HFA) shortness of breath or wheezing #8.5 grams furosemide 20 mg tablet 20 mg PO DAILY #90 tabs 08/15/23 meclizine 25 mg tablet 25 mg PO QID #20 tabs 11/22/23 escitalopram oxalate 5 mg tablet 5 mg PO DAILY #90 tabs 02/02/24 famotidine 20 mg tablet 20 mg PO DAILY #90 tabs 02/02/24 losartan 100 mg tablet 100 mg PO DAILY #90 tabs 02/02/24 celecoxib 200 mg capsule (Celebrex) 200 mg PO BID #60 caps 04/03/24 Allergies Allergy/AdvReac Type Severity Reaction Status Date / Time COY Inhibitors AdvReac Unknown Cough Verified 04/18/24 13:50 Review of Systems Status of ROS: Reports: 10 or more systems reviewed and unremarkable except as noted in History and below Narrative: Constitutional: No fevers, no weight gain or loss. Eyes: No discharge. No vision changes. HENT: No congestion, no sore throat, no ear pain. Cardiovascular: No chest pain, no palpitations. Respiratory: No shortness of breath, no wheezes, no cough. Gastrointestinal: No abdominal pain, no vomiting, no diarrhea. Genitourinary: No dysuria, no hematuria. Musculoskeletal: Left hip injury as described above. Skin: No rashes, no pruritis. Neurological: No dizziness, weakness, sensory change, speech change. Endo/Heme/Allergies: No bruising or bleeding. No polydipsia. Pysch: no suicidality, no anxiety, no insomnia. All other systems reviewed and are negative. [facility] Medical History Depression ?F32.A - Depression, unspecified (ICD-10) Asthma ?J45.909 - Unspecified asthma, uncomplicated (ICD-10) Bilateral knee pain ?M25.561 - Pain in right knee (ICD-10) ?M25.562 - Pain in left knee (ICD-10) Durable power of ip technology transactions attorney in chart Fuchs' corneal dystrophy of both eyes ?H18.513 - Endothelial corneal dystrophy, bilateral (ICD-10) Hearing loss ?H91.90 - Unspecified hearing loss, unspecified ear (ICD-10) Mild intermittent asthma without complication ?J45.20 - Mild intermittent asthma, uncomplicated (ICD-10) Osteoporosis ?M81.0 - Age-related osteoporosis without current pathological fracture (ICD-10) Age-related cognitive decline ?R41.81 - Age-related cognitive decline (ICD-10) Secondary hyperparathyroidism ?N25.81 - Secondary hyperparathyroidism of renal origin (ICD-10) Anemia in chronic kidney disease ?N18.9 - Chronic kidney disease, unspecified (ICD-10) ?D63.1 - Anemia in chronic kidney disease (ICD-10) Stage 4 chronic kidney disease ?N18.4 - Chronic kidney disease, stage 4 (severe) (ICD-10) Lumbar spinal stenosis ?M48.061 - Spinal stenosis, lumbar region without neurogenic claudication (ICD-10) Schatzki's ring of distal esophagus ?K22.2 - Esophageal obstruction (ICD-10) Generalized anxiety disorder ?F41.1 - Generalized anxiety disorder (ICD-10) Irritable bowel syndrome (IBS) ?K58.9 - Irritable bowel syndrome without diarrhea (ICD-10) GERD (gastroesophageal reflux disease) ?K21.9 - Gastro-esophageal reflux disease without esophagitis (ICD-10) Mixed hyperlipidemia ?E78.2 - Mixed hyperlipidemia (ICD-10) Primary hypertension ?I10 - Essential (primary) hypertension (ICD-10) Surgical History Swallowing study performed ?Z13.810 - Encounter for screening for upper gastrointestinal disorder (ICD-10) History of esophagogastroduodenoscopy (EGD) (09/21/22) ?Z98.890 - Other specified postprocedural states (ICD-10) History of abdominal hysterectomy (2008) ?Z90.710 - Acquired absence of both cervix and uterus (ICD-10) History of hammer toe correction (08/17/21) ?Z98.890 - Other specified postprocedural states (ICD-10) ?Z87.39 - Personal history of other diseases of the musculoskeletal system and connective tissue (ICD-10) History of corneal transplant ?Z94.7 - Corneal transplant status (ICD-10) History of total bilateral knee replacement ?Z96.653 - Presence of artificial knee joint, bilateral (ICD-10) History of cataract surgery (09/25/07) ?Z98.49 - Cataract extraction status, unspecified eye (ICD-10) Social History Narrative: , six kids, retired, nonsmoker, no EtOH What is your current living situation?: I presently have a place to live Problems where you live: no known problems In the past 12 months, utilities in danger of being shut off: no In the past 12 mos, have been you worried that your food would run out before you had money to buy more?: never true In the past 12 mos, the food you bought just didn't last and you didn't have money to buy more?: never true Smoking Status: Never smoker Do you use any of these nicotine containing products: None Second hand tobacco smoke exposure: No How often do you have a drink containing alcohol: never How often do you have six or more drinks on one occasion: Never AUDIT-C Alcohol total score: 0 Non-prescribed substance use: denies use How often does anyone, including family, friends and others, physically hurt you: never How often does anyone, including family, friends and others, insult or talk down to you: never How often does anyone, including family, friends and others, threaten you with harm: never How often does anyone, including family, friends and others, scream or curse at you: rarely service: No Health Related Social Needs: Other personal risk factors, not elsewhere classified (Z91.89) Exam Narrative: Exam Narrative: Constitutional: Well-developed, well-nourished, no acute distress. HEENT: Normocephalic, atraumatic. Neck: Normal range of motion. Nontender. Supple. Heart: Regular. No murmurs. Normal rate. Intact distal pulses. Lungs: Clear to auscultation. No chest discomfort. No wheezes, rhonchi, or rales. Abdomen: Normal bowel sounds. Nontender. No rebound tenderness. Genitalia: Deferred. Back: No midline tenderness. Normal range of motion. Extremities: Left leg is shortened and externally rotated. Distinct pain when log-rolling her leg. Skin: Intact. No rash. Warm. No erythema or pallor. Neurologic: No altered sensation. No weakness. Alert and oriented. Psychiatric: No suicidality. No anxiety or depression. No insomnia. Nursing notes and vitals signs are reviewed. Const: Vital Signs, click to edit/add: Vital Signs - 24 hr 04/20/24 13:12 Temperature 97.4 F L Pulse Rate [Pulse Oximeter] 54 L Respiratory Rate 16 Blood Pressure [Ri ght Upper Arm] 125/63 Pulse Oximetry 97 Oxygen Delivery Me thod Room Air Course Vital Signs Vital signs: Initial Vital Signs Temperature 97.4 F L 04/20/24 13:12 Temperature Source Temporal Artery Scan 04/20/24 13:12 Pulse Rate 54 L 04/20/24 13:12 Respiratory Rate 16 04/20/24 13:12 Blood Pressure 125/63 04/20/24 13:12 Blood Pressure Mean 83 04/20/24 13:12 Blood Pressure Position Supine 04/20/24 13:12 Pulse Oximetry 97 04/20/24 13:12 Oxygen Delivery Method Room Air 04/20/24 13:12 Vital Signs Temperature 97.4 F L 04/20/24 13:12 Pulse Rate 54 L 04/20/24 13:12 Respiratory Rate 16 04/20/24 13:12 Blood Pressure 125/63 04/20/24 13:12 Pulse Oximetry 97 04/20/24 13:12 Oxygen Delivery Method Room Air 04/20/24 13:12 Temperature 97.4 F L 04/20/24 13:12 Pulse Rate 54 L 04/20/24 13:12 Respiratory Rate 16 04/20/24 13:12 Blood Pressure 125/63 04/20/24 13:12 Pulse Oximetry 97 04/20/24 13:12 Oxygen Delivery Method Room Air 04/20/24 13:12 MDM - Fall MDM Narrative Medical decision making narrative: This 89-year-old female comes in with a hip injury. Her initial exam is very suspicious for a hip fracture. X-ray images by my review do show a displaced greater trochanteric fracture of the left hip. She did receive a dose of fentanyl from ambulance prior to arrival and has been doing well with pain after arrival here. I did speak with the orthopedic physician's construction assistant professional bass fisherman and the hospitalist regarding these findings. Dr. León accepts this patient into the hospital for ongoing management of this. Lab Data Labs: Lab Results 04/20/24 Range/Units 13:40 WBC 7.40 (4.50-11.00) K/uL RBC 2.94 L (4.00-5.20) m/uL Hgb 9.8 L (12.0-16.0) gm/dL Hct 31.6 L (33.0-51.0) % MCV 108 H (80-100) fL MCH 33 (26-34) pg MCHC 31 L (32-36) gm/dL RDW Coeff of Arnoldo 14.9 (11.5-15.5) % Plt Count 204 (140-440) K/uL Neut % (Auto) 67.5 (42.0-72.0) % Lymph % (Auto) 23.1 (20-44) % Garden % (Auto) 7.4 (0.0-11.0) % Eos % (Auto) 1.5 (0.0-7.0) % Baso % (Auto) 0.4 (0.0-3.0) % Neut # (Auto) 4.99 (1.7-7.0) K/uL Lymph # (Auto) 1.71 (0.90-2.90) K/uL Garden # (Auto) 0.50 (0.00-0.90) K/UL Eos # (Auto) 0.11 (0.00-0.50) K/uL Baso # (Auto) 0.03 (0.00-0.30) K/uL Abs Immat Gran (auto) 0.01 (0.00-0.30) K/uL Imm/Tot Granulo (auto) 0.1 % Sodium 138 (135-149) mmol/L Potassium 4.0 (3.6-5.1) mmol/L Chloride 112 (96-114) mmol/L Carbon Dioxide 21 (20-32) mmol/L Anion Gap 5 L (7-15) mEq/L BUN 46 H (7-30) mg/dL Creatinine 2.1 H (0.5-1.5) mg/dL Estimated GFR 22 ml/min Glucose 131 H (60-115) mg/dL Calcium 9.4 (8.4-10.6) mg/dL Discharge Plan Discharge Clinical Impression: Hip fracture Prescriptions: No Action systaine eye drops instillation TID furosemide 20 mg tablet 20 mg PO DAILY Qty: 90 1RF calcium carbonate 500 mg calcium (1,250 mg) tablet 1,000 mg PO DAILY loperamide 2 mg capsule 2 mg PO .as needed PRN vitamin E mixed 400 unit capsule 400 unit PO QDAY cholecalciferol (vitamin D3) 50 mcg (2,000 unit) capsule 50 mcg PO QDAY aspirin 81 mg capsule 81 mg PO DAILY meclizine 25 mg tablet 25 mg PO QID Qty: 20 0RF albuterol sulfate [Ventolin HFA] 90 mcg/actuation HFA aerosol inhaler 2 puff INHALATION Q4H PRN (Reason: shortness of breath or wheezing) Qty: 8.5 1RF Patient Comments: INHALE 1-2 PUFFS BY MOUTH EVERY 4 HOURS IF NEEDED FOR SHORTNESS OF BREATH OR WHEEZING. famotidine 20 mg tablet 20 mg PO DAILY Qty: 90 1RF losartan 100 mg tablet 100 mg PO DAILY Qty: 90 1RF escitalopram oxalate 5 mg tablet 5 mg PO DAILY Qty: 90 1RF celecoxib [Celebrex] 200 mg capsule 200 mg PO BID Qty: 60 1RF Follow Up/Referrals: Blair Fletcher MD [Primary Care Provider] -
--- OUTSIDE RECORDS SUMMARY | 2024-04-20 13:43 | XMS_ITS | Clinical Summary ---
Author Organization [facility] Address [place], [place] [address] Care Team Providers Care Pizza Delivery Name Role Phone Blair Fletcher MD Primary [...] Department Care Team Description 04/16/2024 8:52 AM SECOND GRADE TEACHER - 04/16/2024 11:59 PM SECOND GRADE TEACHER Hospital Encounter [address] [place] [address] Blair Fletcher MD Vinar, Kaylin J, RACE STARTER 04/16/2024 Travel 04/09/2024 9:18 AM SECOND GRADE TEACHER - 04/09/2024 11:59 PM SECOND GRADE TEACHER Hospital Encounter [address] [place] [address] Blair Fletcher MD Becken, Amy, PT 04/09/2024 Travel 04/02/2024 12:47 PM SECOND GRADE TEACHER - 04/02/2024 11:59 PM SECOND GRADE TEACHER Hospital Encounter [address] [place] [address] Blair Fletcher MD Vinar, Kaylin J, RACE STARTER 04/02/2024 Travel 03/26/2024 9:17 AM CDT - 03/26/2024 11:59 PM CDT Hospital Encounter [address] [address] Blair Fletcher MD Becken, Amy, PT 03/26/2024 Travel 03/19/2024 9:21 AM CDT - 03/19/2024 11:59 PM CDT Hospital Encounter [address] [address] Blair Fletcher MD Vinar, Kaylin J, RACE STARTER 03/19/2024 Travel 03/12/2024 12:44 PM CDT - 03/12/2024 11:59 PM CDT Hospital Encounter [address] [address] Blair Fletcher MD Vinar, Kaylin J, RACE STARTER 03/12/2024 Travel 03/05/2024 1:41 PM CDT - 03/05/2024 11:59 PM CDT Hospital Encounter [address] [place] [address] Blair Fletcher MD Becken, Amy, PT 03/05/2024 Travel 02/27/2024 7:49 AM CDT - 02/27/2024 11:59 PM CDT Hospital Encounter [address] [address] Blair Fletcher MD Becken, Amy, PT 02/27/2024 Travel 02/16/2024 10:45 AM CDT Office Visit [facility] [place] [address] [facility] [place] [address] Jake Novoa, DPM Consult (Toenail fungus ) 02/16/2024 Travel 01/23/2024 11:30 AM CDT - 01/23/2024 11:59 PM CDT Hospital Encounter [address] [place] [address] Ella Santana, Casie Montague, RACE STARTER 01/23/2024 Travel from Last 3 Months Immunizations [...] st Contact Info) Description 04/23/2024 9:30 AM SECOND GRADE TEACHER Appointment [facility] [address] [place] [address] Patricia Romero, PT [address] [place] [address] 04/30/2024 9:30 AM SECOND GRADE TEACHER Appointment [facility] [address] [place] [address] Patricia Romero, PT [address] [place] [address] Health Maintenance Due Date Last Done Comments [...] scanned document for results of this study. Mair Lujan DO DEXA from Last 3 Months or Most Recently Relevant to Health Maintenance Advance Directives * Full Code (Latest Code Status on File) Date Activated Date Inactivated Comments 09/21/2022 7:56 AM 09/21/2022 12:35 PM Question Answer Comments Code Status Discussion: Discussed * Full Code Date Activated Date Inactivated Comments 09/14/2016 8:17 AM 09/14/2016 1:15 PM Care Teams Pizza Delivery Relationship Specialty Start Date End Date Blair Fletcher MD [address] [place] [address] PCP - General Family Practice 03/04/23
[2024-04-20 13:50] LABS: Basophils Absolute Auto 0.03 K/uL (0.00-0.30); Basophils Percent Auto 0.4 % (0.0-3.0); Eosinophils Absolute Auto 0.11 K/uL (0.00-0.50); Eosinophils Percent Auto 1.5 % (0.0-7.0); Hematocrit 31.6 % (33.0-51.0); Hemoglobin* 9.8 gm/dL (12.0-16.0); Immature Granulocytes Abs Auto 0.01 K/uL (0.00-0.30); Immature Granulocytes Pct Auto 0.1 %; Lymphocytes Absolute Auto 1.71 K/uL (0.90-2.90); Lymphocytes Percent Auto 23.1 % (20-44); Mean Corpuscular HGB Conc 31 gm/dL (32-36); Mean Corpuscular Hemoglobin 33 pg (26-34); Mean Corpuscular Volume 108 fL (80-100); Monocytes Percent Auto 7.4 % (0.0-11.0); Neutrophils Absolute Auto 4.99 K/uL (1.7-7.0); Neutrophils Percent Auto 67.5 % (42.0-72.0); Platelet Count* 204 K/uL (140-440); RDW Coefficient of Variation % 14.9 % (11.5-15.5); Red Blood Count 2.94 m/uL (4.00-5.20)
[2024-04-20 13:58] LABS: Slide Review Reflex No
[2024-04-20 14:02] LABS: Chloride* 112 mmol/L (96-114); Sodium* 138 mmol/L (135-149)
[2024-04-20 14:05] LABS: Anion Gap 5 mEq/L (7-15); Blood Urea Nitrogen* 46 mg/dL (7-30); Carbon Dioxide* 21 mmol/L (20-32); Creatinine* 2.1 mg/dL (0.5-1.5); Estimated Glomerular Filt Rate 22 ml/min; Glucose* 131 mg/dL (60-115)
[2024-04-20 14:06] LABS: Calcium* 9.4 mg/dL (8.4-10.6)
--- NOTE | 2024-04-20 15:09 | P.IMHP_ITS ---
Hospitalist- H&P: HPI History of Present Illness Date Seen: 04/20/24 Chief complaint: Fallen Narrative: Komal Monique is a 89 year old female who presented to the ER this afternoon after a fall at home. She was in her closet getting batteries for [place] decorations when she lost her balance, falling onto left hip. She denies any preceding dizziness or lightheadedness, did not hit her head. ER Course and Findings: - fracture of L intertrochanteric femur - reassuring EKG - Hgb 9.8 (baseline 11.3) - Creatinine 2.1 (baseline 1.8) Histories updated below. Takes a daily ASA. She lives independently, son in same home. PCP is Dr. Fletcher. Review of Systems Status of ROS: Reports: 10 or more systems reviewed and unremarkable except as noted in History and below Narrative: - no history of anesthetic or surgical complications during previous surgeries - no chest pain or dyspnea - no skin concerns - no abdominal pain PFSH PFSH Medical History Depression ?F32.A - Depression, unspecified (ICD-10) Asthma ?J45.909 - Unspecified asthma, uncomplicated (ICD-10) Bilateral knee pain ?M25.561 - Pain in right knee (ICD-10) ?M25.562 - Pain in left knee (ICD-10) Durable power of deputy county attorney in chart Fuchs' corneal dystrophy of both eyes ?H18.513 - Endothelial corneal dystrophy, bilateral (ICD-10) Hearing loss ?H91.90 - Unspecified hearing loss, unspecified ear (ICD-10) Mild intermittent asthma without complication ?J45.20 - Mild intermittent asthma, uncomplicated (ICD-10) Osteoporosis ?M81.0 - Age-related osteoporosis without current pathological fracture (ICD- 10) Age-related cognitive decline ?R41.81 - Age-related cognitive decline (ICD-10) Secondary hyperparathyroidism ?N25.81 - Secondary hyperparathyroidism of renal origin (ICD-10) Anemia in chronic kidney disease ?N18.9 - Chronic kidney disease, unspecified (ICD-10) ?D63.1 - Anemia in chronic kidney disease (ICD-10) Stage 4 chronic kidney disease ?N18.4 - Chronic kidney disease, stage 4 (severe) (ICD-10) Lumbar spinal stenosis ?M48.061 - Spinal stenosis, lumbar region without neurogenic claudication (ICD-10) Schatzki's ring of distal esophagus ?K22.2 - Esophageal obstruction (ICD-10) Generalized anxiety disorder ?F41.1 - Generalized anxiety disorder (ICD-10) Irritable bowel syndrome (IBS) ?K58.9 - Irritable bowel syndrome without diarrhea (ICD-10) GERD (gastroesophageal reflux disease) ?K21.9 - Gastro-esophageal reflux disease without esophagitis (ICD-10) Mixed hyperlipidemia ?E78.2 - Mixed hyperlipidemia (ICD-10) Primary hypertension ?I10 - Essential (primary) hypertension (ICD-10) Surgical History Swallowing study performed ?Z13.810 - Encounter for screening for upper gastrointestinal disorder (ICD- 10) History of esophagogastroduodenoscopy (EGD) (09/21/22) ?Z98.890 - Other specified postprocedural states (ICD-10) History of abdominal hysterectomy (2008) ?Z90.710 - Acquired absence of both cervix and uterus (ICD-10) History of hammer toe correction (08/17/21) ?Z98.890 - Other specified postprocedural states (ICD-10) ?Z87.39 - Personal history of other diseases of the musculoskeletal system and connective tissue (ICD-10) History of corneal transplant ?Z94.7 - Corneal transplant status (ICD-10) History of total bilateral knee replacement ?Z96.653 - Presence of artificial knee joint, bilateral (ICD-10) History of cataract surgery (09/25/07) ?Z98.49 - Cataract extraction status, unspecified eye (ICD-10) Social History (Updated 04/20/24 @ 15:59 by Lashell León MD) Narrative: , six kids, retired, nonsmoker, no EtOH. Lives independently, uses walker for ambulation. Requests DNR/DNI status. What is your current living situation?: I presently have a place to live Problems where you live: no known problems In the past 12 months, utilities in danger of being shut off: no In the past 12 mos, have been you worried that your food would run out before yo u had money to buy more?: never true In the past 12 mos, the food you bought just didn't last and you didn't have money to buy more?: never true Smoking Status: Never smoker Do you use any of these nicotine containing products: None Second hand tobacco smoke exposure: No How often do you have a drink containing alcohol: never How often do you have six or more drinks on one occasion: Never AUDIT-C Alcohol total score: 0 Non-prescribed substance use: denies use How often does anyone, including family, friends and others, physically hurt you : never How often does anyone, including family, friends and others, insult or talk down to you: never How often does anyone, including family, friends and others, threaten you with harm: never How often does anyone, including family, friends and others, scream or curse at you: rarely service: No Health Related Social Needs: Other personal risk factors, not elsewhere classified (Z91.89) Meds Home Medications and Allergies Home Medications ?Medication ?Instructions ?Recorded ?Confirmed ?Type aspirin 81 mg capsule 81 mg PO DAILY 05/16/22 04/20/24 History calcium carbonate 1,000 mg PO DAILY 01/28/23 04/20/24 History vitamin E mixed 400 unit capsule 400 unit PO QDAY 02/02/23 04/20/24 History systaine eye drops 1 drp instillation TID 02/14/23 04/20/24 History cholecalciferol (vitamin D3) 50 50 mcg PO QDAY 11/25/23 04/20/24 History mcg (2,000 unit) capsule famotidine 20 mg tablet 20 mg PO DAILY PRN 04/20/24 04/20/24 History furosemide 20 mg tablet 20 mg PO DAILY PRN 04/20/24 04/20/24 History Home Medication Comments: - takes Lasix most days of the week for LE edema - also on Losartan 100mg daily, Escitalopram 5mg daily Allergies Allergy/AdvReac Type Severity Reaction Status Date / Time OCY Inhibitors AdvReac Unknown Cough Verified 04/18/24 13:50 Exam Narrative: Exam Narrative: GEN: Alert and nontoxic, laying comfortably in bed and speaking in full sentences HEENT: Normal external ears, EOMIs bilaterally, no scleral icterus CV: RRR, No concerning murmurs, rubs, or gallops R: LCTA bilaterally without concerning wheezing or rales Ext: Trace pitting edema BLE Skin: No concerning skin lesions or rashes on exposed skin Neuro: Nonfocal, no resting tremor Psych: Appropriate Const: Vital Signs, click to edit/add: Vital Signs - 24 hr 04/20/24 13:12 04/20/24 14:26 04/20/24 14:30 Temperature 97.4 F L Pulse Rate 61 64 Pulse Rate [Pulse Oximeter] 54 L Respiratory Rate 16 Blood Pressure [Ri ght Upper Arm] 125/63 Pulse Oximetry 97 96 97 Oxygen Delivery Me thod Room Air 04/20/24 14:45 Temperature Pulse Rate 75 Pulse Rate [Pulse Oximeter] Respiratory Rate Blood Pressure [Ri ght Upper Arm] Pulse Oximetry 97 [facility]: Result Labs Labs: Short CBC 04/20/24 Range/Units 13:40 WBC 7.40 (4.50-11.00) K/uL Hgb 9.8 L (12.0-16.0) gm/dL Hct 31.6 L (33.0-51.0) % Plt Count 204 (140-440) K/uL BMP 04/20/24 13:40 Sodium 138 Potassium 4.0 Chloride 112 Carbon Dioxide 21 BUN 46 H Creatinine 2.1 H Glucose 131 H Calcium 9.4 Assessment and Plan Assessment and plan (1) Hip fracture: Problem comment: - L intertrochanteric fracture - plan for surgical intervention with Ortho team 04/20 - chronic conditions appear optimized for this urgent procedure, holding ASA Status: Acute (2) Stage 4 chronic kidney disease: Problem comment: - baseline GFR in the 40s Status: Chronic Plan - per above - requests DNR/DNI status, agreeable to Full Code status during surgery - son updated at bedside, questions answered
[2024-04-20] MEDS: MORPHINE 2 MG/ML inj IVP ×3 (15:44→22:27)
[2024-04-20] MEDS: SODIUM CHLORIDE 0.9 % (FLUSH) 10 ML SYRINGE 5 ML IVF (18:04)
[2024-04-20] MEDS: 0.9 % SODIUM CHLORIDE 1000 ml 1,000 ML 75 ML IV (18:35)
[2024-04-21] VITALS (30 sets, daily range): BP systolic 82–133; BP diastolic 54–78; PULSE 89–117; RESP 12–20; TEMP 36.3–36.9; O2SAT 94–98
[2024-04-21] MEDS: MORPHINE 2 MG/ML inj IVP ×2 (03:31→08:53)
[2024-04-21] MEDS: SODIUM CHLORIDE 0.9 % (FLUSH) 10 ML SYRINGE 5 ML IVF (03:32)
--- NOTE | 2024-04-21 06:23 | PC.NURSE ---
End of shift note [id number]: Pt alert & oriented x 4 and able to make needs known. VSS. She has been afebrile and on RA throughout the shift. PRN Morphine given for pain control related to left hip fx along with providing ice, encouraging rest and assisting with repositioning. IV NS running per order in place. Morrow catheter currently in place. SCDs worn though pt refused TEDs when approached and educated. Bed alarm on due to fall risk, call light within reach. Mepilex sacral dressing applied to sacrum for protection. ?
[2024-04-21 06:52] LABS: Basophils Absolute Auto 0.05 K/uL (0.00-0.30); Basophils Percent Auto 0.5 % (0.0-3.0); Eosinophils Absolute Auto 0.09 K/uL (0.00-0.50); Eosinophils Percent Auto 0.9 % (0.0-7.0); Hematocrit 27.7 % (33.0-51.0); Hemoglobin* 8.3 gm/dL (12.0-16.0); Immature Granulocytes Abs Auto 0.02 K/uL (0.00-0.30); Immature Granulocytes Pct Auto 0.2 %; Lymphocytes Percent Auto 20.6 % (20-44); Mean Corpuscular HGB Conc 30 gm/dL (32-36); Mean Corpuscular Hemoglobin 33 pg (26-34); Mean Corpuscular Volume 109 fL (80-100); Monocytes Percent Auto 7.1 % (0.0-11.0); Neutrophils Absolute Auto 7.22 K/uL (1.7-7.0); Neutrophils Percent Auto 70.7 % (42.0-72.0); Platelet Count* 195 K/uL (140-440); RDW Coefficient of Variation % 14.9 % (11.5-15.5); Red Blood Count 2.55 m/uL (4.00-5.20)
[2024-04-21 06:56] LABS: Slide Review Reflex No
[2024-04-21 07:12] LABS: Chloride* 115 mmol/L (96-114); Potassium* 4.7 mmol/L (3.6-5.1); Sodium* 140 mmol/L (135-149)
[2024-04-21 07:15] LABS: Anion Gap 6 mEq/L (7-15); Blood Urea Nitrogen* 38 mg/dL (7-30); Carbon Dioxide* 19 mmol/L (20-32); Creatinine* 1.7 mg/dL (0.5-1.5); Est. Creatinine Clearance* 18.09; Estimated Glomerular Filt Rate 29 ml/min
[2024-04-21 07:16] LABS: Glucose* 120 mg/dL (60-115)
[2024-04-21] MEDS: 0.9 % SODIUM CHLORIDE 1000 ml 1,000 ML 75 ML IV (07:24)
[2024-04-21 07:37] LABS: Immature Reticulocyte Fraction 15.4 % (3.0-15.9); Reticulocyte Hemoglobin Equivi 33.8 pg (29.0-35.0); Reticulocyte Percent 1.3 % (0.5-2.0); Reticulocytes Absolute 0.03 # (0.03-0.08)
[2024-04-21 07:58] LABS: Hematocrit 27.7 % (33.0-51.0)
[2024-04-21] MEDS: PANTOPRAZOLE SODIUM 40 MG INJ IVP (08:53)
[2024-04-21 08:55] LABS: Iron* 47 ug/dL (37-170)
[2024-04-21 09:04] LABS: Percent Iron Saturation 21 % (20-50); Total Iron Binding Capacity 228 ug/dL (265-497)
[2024-04-21 09:45] LABS: Vitamin B12* 273 pg/mL (243-894)
--- NOTE | 2024-04-21 11:05 | P.ORCN_ITS ---
History of Present Illness HPI Date Seen: 04/21/24 Chief complaint: Fallen Narrative: The patient is an 89-year-old community ambulator with a walker. She fell yesterday sustaining a left lower extremity intertrochanteric fracture. She has never injured this hip or had surgery on it previously. She has been medically cleared for surgery. Review of Systems Narrative: The patient denies: Fever, night sweats, shaking chills, nausea, vomiting, diarrhea, chest pain, chest pressure, shortness of breath, no rash, no change in hearing or vision, no issues with bleeding or clotting [facility] Medical History Depression ?F32.A - Depression, unspecified (ICD-10) Asthma ?J45.909 - Unspecified asthma, uncomplicated (ICD-10) Bilateral knee pain ?M25.561 - Pain in right knee (ICD-10) ?M25.562 - Pain in left knee (ICD-10) Durable power of tax attorney in chart Fuchs' corneal dystrophy of both eyes ?H18.513 - Endothelial corneal dystrophy, bilateral (ICD-10) Hearing loss ?H91.90 - Unspecified hearing loss, unspecified ear (ICD-10) Mild intermittent asthma without complication ?J45.20 - Mild intermittent asthma, uncomplicated (ICD-10) Osteoporosis ?M81.0 - Age-related osteoporosis without current pathological fracture (ICD-10) Age-related cognitive decline ?R41.81 - Age-related cognitive decline (ICD-10) Secondary hyperparathyroidism ?N25.81 - Secondary hyperparathyroidism of renal origin (ICD-10) Anemia in chronic kidney disease ?N18.9 - Chronic kidney disease, unspecified (ICD-10) ?D63.1 - Anemia in chronic kidney disease (ICD-10) Stage 4 chronic kidney disease ?N18.4 - Chronic kidney disease, stage 4 (severe) (ICD-10) Lumbar spinal stenosis ?M48.061 - Spinal stenosis, lumbar region without neurogenic claudication (ICD-10) Schatzki's ring of distal esophagus ?K22.2 - Esophageal obstruction (ICD-10) Generalized anxiety disorder ?F41.1 - Generalized anxiety disorder (ICD-10) Irritable bowel syndrome (IBS) ?K58.9 - Irritable bowel syndrome without diarrhea (ICD-10) GERD (gastroesophageal reflux disease) ?K21.9 - Gastro-esophageal reflux disease without esophagitis (ICD-10) Mixed hyperlipidemia ?E78.2 - Mixed hyperlipidemia (ICD-10) Primary hypertension ?I10 - Essential (primary) hypertension (ICD-10) Surgical History Swallowing study performed ?Z13.810 - Encounter for screening for upper gastrointestinal disorder (ICD- 10) History of esophagogastroduodenoscopy (EGD) (09/21/22) ?Z98.890 - Other specified postprocedural states (ICD-10) History of abdominal hysterectomy (2008) ?Z90.710 - Acquired absence of both cervix and uterus (ICD-10) History of hammer toe correction (08/17/21) ?Z98.890 - Other specified postprocedural states (ICD-10) ?Z87.39 - Personal history of other diseases of the musculoskeletal system and connective tissue (ICD-10) History of corneal transplant ?Z94.7 - Corneal transplant status (ICD-10) History of total bilateral knee replacement ?Z96.653 - Presence of artificial knee joint, bilateral (ICD-10) History of cataract surgery (09/25/07) ?Z98.49 - Cataract extraction status, unspecified eye (ICD-10) Social History Narrative: , six kids, retired, nonsmoker, no EtOH. Lives independently, uses walker for ambulation. Requests DNR/DNI status. What is your current living situation?: I presently have a place to live Problems where you live: no known problems Problems where you live details: N/A In the past 12 months, utilities in danger of being shut off: no In the past 12 mos, have been you worried that your food would run out before you had money to buy more?: never true In the past 12 mos, the food you bought just didn't last and you didn't have money to buy more?: never true Smoking Status: Never smoker Do you use any of these nicotine containing products: None Second hand tobacco smoke exposure: No How often do you have a drink containing alcohol: never How often do you have six or more drinks on one occasion: Never AUDIT-C Alcohol total score: 0 Non-prescribed substance use: denies use How often does anyone, including family, friends and others, physically hurt you : never How often does anyone, including family, friends and others, insult or talk down to you: never How often does anyone, including family, friends and others, threaten you with harm: never How often does anyone, including family, friends and others, scream or curse at you: never service: No Meds Home Medications and Allergies Home Medications ?Medication ?Instructions ?Recorded ?Confirmed ?Type aspirin 81 mg capsule 81 mg PO DAILY 05/16/22 04/20/24 History calcium carbonate 1,000 mg PO DAILY 01/28/23 04/20/24 History vitamin E mixed 400 unit capsule 400 unit PO QDAY 02/02/23 04/20/24 History systaine eye drops 1 drp instillation TID 02/14/23 04/20/24 History cholecalciferol (vitamin D3) 50 50 mcg PO QDAY 11/25/23 04/20/24 History mcg (2,000 unit) capsule famotidine 20 mg tablet 20 mg PO DAILY PRN 04/20/24 04/20/24 History furosemide 20 mg tablet 20 mg PO DAILY PRN 04/20/24 04/20/24 History Allergies Allergy/AdvReac Type Severity Reaction Status Date / Time CYO Inhibitors AdvReac Unknown Cough Verified 04/18/24 13:50 Ortho Exam Narrative Exam Narrative: The patient is alert and oriented x3, in no acute distress, they are able to converse in a normal speaking voice without obvious hearing loss and with nonlabored breathing. The patient is examined supine in the hospital bed. The skin about the left hip is intact and normal. There is no significant thigh swelling or ecchymosis. She has a left TKA surgical scar. CMS to the foot is normal. Const Vital Signs, click to edit/add: Vital Signs - 24 hr 04/20/24 13:12 04/20/24 14:26 04/20/24 14:30 Temperature 97.4 F L Pulse Rate 61 64 Pulse Rate [Pulse Oximeter] 54 L Pulse Rate [Right Radial] Respiratory Rate 16 Blood Pressure Blood Pressure [Right Arm] Blood Pressure [Right Upper Arm] 125/63 Pulse Oximetry 97 96 97 Oxygen Delivery Method Room Air 04/20/24 14:45 04/20/24 17:11 04/20/24 17:11 Temperature 97.6 F Pulse Rate 75 Pulse Rate [Pulse Oximeter] Pulse Rate [Right Radial] 79 Respiratory Rate 16 16 Blood Pressure Blood Pressure [Right Arm] 128/70 Blood Pressure [Right Upper Arm] Pulse Oximetry 97 98 98 Oxygen Delivery Method Room Air Room Air 04/20/24 19:29 04/20/24 22:46 04/20/24 22:48 Temperature 97.8 F 98.0 F Pulse Rate Pulse Rate [Pulse Oximeter] Pulse Rate [Right Radial] 69 76 Respiratory Rate 16 16 16 Blood Pressure Blood Pressure [Right Arm] 94/62 112/61 Blood Pressure [Right Upper Arm] Pulse Oximetry 96 96 96 Oxygen Delivery Method Room Air Room Air Room Air 04/20/24 23:00 04/21/24 03:35 04/21/24 09:05 Temperature 97.9 F Pulse Rate Pulse Rate [Pulse Oximeter] Pulse Rate [Right Radial] 76 90 Respiratory Rate 16 16 18 Blood Pressure Blood Pressure [Right Arm] 133/60 Blood Pressure [Right Upper Arm] Pulse Oximetry 96 97 Oxygen Delivery Method Room Air Room Air 04/21/24 09:05 04/21/24 10:05 04/21/24 10:37 Temperature 97.5 F L 97.5 F L 98.1 F Pulse Rate 90 89 Pulse Rate [Pulse Oximeter] Pulse Rate [Right Radial] 90 Respiratory Rate 18 18 18 Blood Pressure 127/76 113/61 Blood Pressure [Right Arm] 127/76 Blood Pressure [Right Upper Arm] Pulse Oximetry 97 97 96 Oxygen Delivery Method Room Air Room Air Room Air Results Labs Labs: Laboratory Results - last 48 hr 04/20/24 04/21/24 04/21/24 13:40 05:33 05:53 WBC 7.40 10.20 RBC 2.94 L 2.55 L Hgb 9.8 L 8.3 L Hct 31.6 L 27.7 L 27.7 L MCV 108 H 109 H MCH 33 33 MCHC 31 L 30 L RDW Coeff of Arnoldo 14.9 14.9 Plt Count 204 195 Neut % (Auto) 67.5 70.7 Lymph % (Auto) 23.1 20.6 [place] % (Auto) 7.4 7.1 Eos % (Auto) 1.5 0.9 Baso % (Auto) 0.4 0.5 Neut # (Auto) 4.99 7.22 H Lymph # (Auto) 1.71 2.10 [place] # (Auto) 0.50 0.70 Eos # (Auto) 0.11 0.09 Baso # (Auto) 0.03 0.05 Abs Immat Gran (auto) 0.01 0.02 Imm/Tot Granulo (auto) 0.1 0.2 Absolute Retic 0.03 Percent Retic 1.3 Immature Retic Fraction 15.4 Retic Hgb Equivalent 33.8 Sodium 138 140 Potassium 4.0 4.7 Chloride 112 115 H Carbon Dioxide 21 19 L Anion Gap 5 L 6 L BUN 46 H 38 H Creatinine 2.1 H 1.7 H Estimated Creat Clear 18.09 Estimated GFR 22 29 Glucose 131 H 120 H Calcium 9.4 9.0 Iron 47 TIBC 228 L % Saturation 21 Vitamin B12 273 Blood Type Antibody Screen Crossmatch ([facility]) 04/21/24 Unknown WBC RBC Hgb Hct MCV MCH MCHC RDW Coeff of Arnoldo Plt Count Neut % (Auto) Lymph % (Auto) [place] % (Auto) Eos % (Auto) Baso % (Auto) Neut # (Auto) Lymph # (Auto) [place] # (Auto) Eos # (Auto) Baso # (Auto) Abs Immat Gran (auto) Imm/Tot Granulo (auto) Absolute Retic Percent Retic Immature Retic Fraction Retic Hgb Equivalent Sodium Potassium Chloride Carbon Dioxide Anion Gap BUN Creatinine Estimated Creat Clear Estimated GFR Glucose Calcium Iron TIBC % Saturation Vitamin B12 Blood Type O Negative Antibody Screen NEGATIVE Crossmatch ([facility]) See Detail Diagnostic results Additional Comments: An AP pelvis, AP and cross-table lateral view of the left hip show a 3 part intertrochanteric fracture of the left lower extremity. There is no pre- existing hip joint arthritis. No obvious pathologic lesion. Assessment and Plan Assessment and plan (1) Hip fracture: Problem comment: - L intertrochanteric fracture - plan for surgical intervention with Ortho team 04/20 - chronic conditions appear optimized for this urgent procedure, holding ASA Status: Acute Total time spent: Total time spent is greater than 50% in coordination of care (as documented) at patient's floor/unit and/or counseling patient: (2) Stage 4 chronic kidney disease: Problem comment: - baseline GFR in the 40s Status: Chronic Total time spent: Total time spent is greater than 50% in coordination of care (as documented) at patient's floor/unit and/or counseling patient: Plan Assessment: Three-part intertrochanteric fracture, left lower extremity Plan: The patient has been medically cleared for surgery. Therefore, we will plan to take her to the operating room today for ORIF left hip fracture.
--- NOTE | 2024-04-21 12:00 | CRLHL7_ITS ---
For Patients: As a result of the Cures Act, medical imaging exams and procedure reports are released immediately into your electronic medical record. You may view this report before your referring provider. If you have questions, please contact your health care provider. Indication: INTRA OP FEMUR RODDING Technique: Four fluoroscopic images of the left femur. Fluoroscopic time 245.6 seconds. IMPRESSION: Fluoroscopic guidance for open reduction internal fixation of proximal femoral fracture. Dictated by Blair Nash MD @ 04/23/2024 8:49:47 AM (Electronically Signed)
[2024-04-21] MEDS: CEFAZOLIN 1 GM inj IVP (12:17)
--- NOTE | 2024-04-21 13:53 | CRLHL7_ITS ---
For Patients: As a result of the Cures Act, medical imaging exams and procedure reports are released immediately into your electronic medical record. You may view this report before your referring provider. If you have questions, please contact your health care provider. Indication: ORIF LT hip fracture Technique: Two views left femur Comparison: 04/20/2024 IMPRESSION: Status post open reduction internal fixation of comminuted and displaced proximal femoral fracture. Hardware intact. Alignment near anatomic. Dictated by Blair Nash MD @ 04/23/2024 8:50:50 AM (Electronically Signed)
--- NOTE | 2024-04-21 13:58 | PM.ORPRC ---
Procedure Note Date of procedure: 04/21/24 Procedure: PREOPERATIVE DIAGNOSIS: Left hip 3 part intertrochanteric fracture POSTOPERATIVE DIAGNOSIS: Left hip 3 part intertrochanteric fracture NAME OF OPERATION: Left hip fracture ORIF SURGEON: Raad Archer MD CRIMINAL RESEARCHER: Anson Sahu PA-C IMPLANTS: Synthes intramedullary hip screw 12 mm x 360 mm with a 100 mm lag screw ANESTHESIA: Spinal ESTIMATED BLOOD LOSS: 300 mL COMPLICATIONS: None SPECIMENS: None DRAINS: None PREOPERATIVE ANTIBIOTICS: Ancef 1 gram INDICATIONS: The patient is a 89-year-old who fell yesterday sustaining a 3 part intertrochanteric fracture of the left hip. They were admitted for workup and care. They have been medically cleared for surgery. The risks, benefits and expected outcomes were discussed in detail. These included but were not limited to: Infection, bleeding, injury to blood vessel or nerve, venous thromboembolism. All questions were answered to their satisfaction. Use of an cardiovascular physician assistant was necessary for patient positioning and safety, soft tissue retraction and closure, dressing application, and transfer of the patient to and from the hospital bed to the fracture table. PROCEDURE: Spinal anesthesia was administered. The patient was placed supine on the fracture table. The left lower extremity was prepped and draped in the usual sterile fashion. The limb was placed in longitudinal traction. Our provisional reduction was confirmed with the C-arm. The guide pin was placed percutaneously to the tip of the greater trochanter. It was advanced into the canal. Its placement was confirmed with the image intensifier in both AP and lateral views. We then made a stab incision around the guide pin. The soft tissue sleeve was advanced to the tip of the trochanter. The opening reamer was used. We made an incision over the flare of the greater trochanter. Dissection was carried with the Harris elevator to the lateral cortex. A bone hook was placed over the calcar to obtain an anatomic reduction. The ball-tipped guide domi was placed. The canal was reamed to 13.5 mm. The intramedullary nail was placed. We held the fracture reduced with the bone hook and the guide pin was taken to the subchondral bone of the femoral head on both the AP and lateral views. It was placed in the posterior, center of the head. The drill and the tap were used. We placed the 100 mm lag screw. We removed the bone hook. Our reduction remains excellent. Traction was released. The fracture was compressed and the anterior cortex of the head and neck fragment slid over the anterior cortex of the shaft fragment. The lag screw was set to dynamic mode. That is it was not locked. This construct was imaged in the AP and lateral views and was felt to be well placed with a stable reduction. The wounds were irrigated with normal saline. They were closed with Vicryl deep and Monocryl in the skin. A dry dressing was applied. Sponge and needle counts were correct x2. The patient tolerated the procedure well. There were no apparent complications. They were carefully transferred to the hospital bed and taken to the postanesthesia care unit in satisfactory condition. PLAN: The patient will be mobilized with physical therapy. They may weightbear as tolerates on the left lower extremity. Xarelto will be used for DVT prophylaxis. They will be discharged to a long term once medically appropriate.
[2024-04-21] MEDS: 0.9 % SODIUM CHLORIDE 1000 ml 500 ML 75 ML IV (14:20)
[2024-04-21] MEDS: ALBUMIN HUMAN 5% IV (14:45)
--- NOTE | 2024-04-21 14:45 | P.ANES_ITS ---
Anesthesia Charges Start Date/Time Anesthesia Start Date: 04/21/24 Anesthesia Start Time: 11:28 Stop Date/Time Anesthesia Stop Date: 04/21/24 Anesthesia Stop Time: 14:36 Summary Emergency: WAGON DRILLER Extremes of Age - Over 70 or under 1: WAGON DRILLER
--- NOTE | 2024-04-21 14:45 | W.ANESCHARGE ---
Anesthesia Charges Start Date/Time Anesthesia Start Date: 04/21/24 Anesthesia Start Time: 11:28 Stop Date/Time Anesthesia Stop Date: 04/21/24 Anesthesia Stop Time: 14:36 Summary Emergency: MELON PACKER Extremes of Age - Over 70 or under 1: MELON PACKER
--- NOTE | 2024-04-21 15:52 | PM.IMPN1 ---
Progress Note: A&P Assessment and plan (1) Hip fracture: Problem details: - L intertrochanteric fracture ORIF with Dr. Archer on April 21. Status: Acute (2) Primary osteoarthritis, right shoulder: Problem details: End-stage Status: Acute (3) Left humeral fracture: Problem details: Fracture dislocation on 08/17/23, greater tuberosity fracture Status: Acute (4) Osteoporosis: Problem details: Recurrent fragility fractures Status: Chronic (5) Anemia in chronic kidney disease: Problem details: Macrocytic anemia. Does not appear to be iron deficient. Due to acute drop in hemoglobin with hip fracture will transfuse 1 unit of blood and have additional unit of blood available if needed intraoperatively Status: Chronic (6) Stage 4 chronic kidney disease: Problem details: Baseline creatinine 1.7-1.8 with act estimated creatinine clearance of 16 an estimated GFR of 27. On admission creatinine 2.1 improved to 1.7 on day of surgery. Stop Celebrex. Continue to monitor. Status: Chronic (7) Discharge planning issues: Problem details: Before her fracture she was walking with a walker but independent in her own apartment. Likely will need care home placement for rehab prior to returning to independent living. Status: Acute Plan Patient admitted to the hospital for surgery and postop rehab and medical management. Time Spent With Patient Total time spent: Total time spent today is 50 minutes in coordination of care, review of records and discussing with patient and family ongoing management of hip fracture and other chronic medical problems Subjective Date Seen: 04/21/24 Interval history: Komal Monique is a 89 year old female who presented to the ER this afternoon after an accidental fall at home. She was in her closet getting batteries for Harry'sations when she lost her balance, falling onto left hip. She denies any preceding dizziness or lightheadedness, did not hit her head. She reports no recent illness. She reports normally she gets around well. She did have a fall in July sustaining a left shoulder fracture. She has been troubled by right shoulder pain. She was seen by her primary care doctor in January and was started on Celebrex 200 mg b.i.d.. She was seen on April 18, 3 days ago and given a shoulder injection with Depo-Medrol which gave her remarkable improvement in her pain. Diagnosis was osteoarthritis of the glenohumeral joint. Exam Narrative: Exam Narrative: She is alert and appears in no distress. She gives her own history. Oropharynx normal. Respirations are clear to auscultation. Cardiovascular: S1, S2, regular rate and rhythm. Abdomen: Bowel sounds active. Abdomen is soft without tenderness. She moves her upper extremities well. Left lower extremity is foreshortened and externally rotated. She has intact pedal pulses. Intact strength and motion in both ankles. Const: Vital Signs, click to edit/add: Vital Signs - 24 hr 04/20/24 17:11 04/20/24 17:11 04/20/24 19:29 Temperature 97.6 F 97.8 F Pulse Rate Pulse Rate [Right Radial] 79 69 Respiratory Rate 16 16 16 Blood Pressure Blood Pressure [Ri ght Arm] 128/70 94/62 Pulse Oximetry 98 98 96 Oxygen Delivery Me thod Room Air Room Air Room Air 04/20/24 22:46 04/20/24 22:48 04/20/24 23:00 Temperature 98.0 F Pulse Rate Pulse Rate [Right Radial] 76 76 Respiratory Rate 16 16 16 Blood Pressure Blood Pressure [Ri ght Arm] 112/61 Pulse Oximetry 96 96 Oxygen Delivery Ny thod Room Air Room Air 04/21/24 03:35 04/21/24 09:05 04/21/24 09:05 Temperature 97.9 F 97.5 F L Pulse Rate Pulse Rate [Right Radial] 90 90 Respiratory Rate 16 18 18 Blood Pressure Blood Pressure [Ri ght Arm] 133/60 127/76 Pulse Oximetry 96 97 97 Oxygen Delivery Ny thod Room Air Room Air Room Air 04/21/24 10:05 04/21/24 10:37 04/21/24 11:00 Temperature 97.5 F L 98.1 F 97.9 F Pulse Rate 90 89 90 Pulse Rate [Right Radial] Respiratory Rate 18 18 18 Blood Pressure 127/76 113/61 103/58 L Blood Pressure [Ri ght Arm] Pulse Oximetry 97 96 97 Oxygen Delivery Ny thod Room Air Room Air Room Air 04/21/24 14:31 04/21/24 14:35 04/21/24 14:40 Temperature 98.1 F Pulse Rate 99 102 H 100 Pulse Rate [Right Radial] Respiratory Rate 12 14 14 Blood Pressure 82/59 L 82/59 L 85/60 L Blood Pressure [Ri ght Arm] Pulse Oximetry 97 Oxygen Delivery Me thod Room Air Room Air Room Air 04/21/24 14:45 04/21/24 14:50 04/21/24 14:55 Temperature 98.3 F Pulse Rate 106 H 103 H 96 Pulse Rate [Right Radial] Respiratory Rate 12 14 14 Blood Pressure 106/60 91/62 91/59 L Blood Pressure [Ri ght Arm] Pulse Oximetry 94 98 97 Oxygen Delivery Me thod Room Air Room Air Room Air 04/21/24 15:00 04/21/24 15:05 04/21/24 15:10 Temperature 97.8 F Pulse Rate 108 H 96 112 H Pulse Rate [Right Radial] Respiratory Rate 12 14 14 Blood Pressure 108/72 98/67 113/54 L Blood Pressure [Ri ght Arm] Pulse Oximetry 96 95 95 Oxygen Delivery Me thod Room Air Room Air Room Air 04/21/24 15:15 04/21/24 15:20 Temperature 97.8 F Pulse Rate 117 H 114 H Pulse Rate [Right Radial] Respiratory Rate 20 20 Blood Pressure 94/58 L 111/74 Blood Pressure [Ri ght Arm] Pulse Oximetry 98 96 Oxygen Delivery Me thod Room Air Room Air Documenting provider has reviewed patient's vital signs: yes Labs Labs: Laboratory Results - last 24 hr 04/21/24 04/21/24 04/21/24 05:33 05:53 Unknown WBC 10.20 RBC 2.55 L Hgb 8.3 L Hct 27.7 L 27.7 L MCV 109 H MCH 33 MCHC 30 L RDW Coeff of Arnoldo 14.9 Plt Count 195 Neut % (Auto) 70.7 Lymph % (Auto) 20.6 [place] % (Auto) 7.1 Eos % (Auto) 0.9 Baso % (Auto) 0.5 Neut # (Auto) 7.22 H Lymph # (Auto) 2.10 [place] # (Auto) 0.70 Eos # (Auto) 0.09 Baso # (Auto) 0.05 Abs Immat Gran (auto) 0.02 Imm/Tot Granulo (auto) 0.2 Absolute Retic 0.03 Percent Retic 1.3 Immature Retic Fraction 15.4 Retic Hgb Equivalent 33.8 Sodium 140 Potassium 4.7 Chloride 115 H Carbon Dioxide 19 L Anion Gap 6 L BUN 38 H Creatinine 1.7 H Estimated Creat Clear 18.09 Estimated GFR 29 Glucose 120 H Calcium 9.0 Iron 47 TIBC 228 L % Saturation 21 Vitamin B12 273 Blood Type O Negative Antibody Screen NEGATIVE Crossmatch ([facility]) See Detail
[2024-04-21] MEDS: LACTATED RINGERS 1000 ML 1,000 ML 75 ML IV (18:34)
[2024-04-21] MEDS: LACTATED RINGERS 500 ML 500 ML IV (20:05)
--- NOTE | 2024-04-21 20:49 | PC.NURSE ---
Pt noted to be hypotensive and tachycardic with 1900 VS after surgery (B/P 89/72 and HR 116). Caustics Loader updated MD Benito who gave order for 500 mL bolus of LR which is currently infusing. 1999 B/P and HR noted to be improved (B/P 94/58 and HR 103) compared to 1900 VS.
[2024-04-21] MEDS: SENNOSIDES 1 TAB TABLET 2 TAB PO (20:57)
[2024-04-21] MEDS: ACETAMINOPHEN 325 MG TABLET 650 MG PO (20:58)
[2024-04-21] MEDS: MELATONIN 3 MG TABLET PO (22:48)
[2024-04-21] MEDS: CEFAZOLIN 1 GM in 0.9 % SODIUM CHLORIDE Mini-bag 100 ML IVPB (23:34)
[2024-04-22] VITALS (14 sets, daily range): BP systolic 98–125; BP diastolic 53–70; PULSE 77–96; RESP 16–18; TEMP 36.2–37.2; O2SAT 93–99
[2024-04-22] MEDS: ACETAMINOPHEN 325 MG TABLET 650 MG PO ×3 (03:46→21:24)
[2024-04-22 06:27] LABS: Hematocrit 20.4 % (33.0-51.0); Mean Corpuscular HGB Conc 31 gm/dL (32-36); Mean Corpuscular Hemoglobin 33 pg (26-34); Mean Corpuscular Volume 104 fL (80-100); Platelet Count* 123 K/uL (140-440); Red Blood Count 1.96 m/uL (4.00-5.20); White Blood Count* 7.95 K/uL (4.50-11.00)
[2024-04-22 06:37] LABS: Hemoglobin* 6.4 gm/dL (12.0-16.0); Slide Review Reflex No
[2024-04-22 06:46] LABS: Potassium* 4.9 mmol/L (3.6-5.1); Sodium* 138 mmol/L (135-149)
[2024-04-22 06:49] LABS: Creatinine* 1.4 mg/dL (0.5-1.5); Est. Creatinine Clearance* 21.97; Estimated Glomerular Filt Rate 36 ml/min
[2024-04-22 06:50] LABS: Blood Urea Nitrogen* 33 mg/dL (7-30)
--- NOTE | 2024-04-22 07:27 | PC.NURSE ---
End of shift note [id number]: Pt alert & oriented x 4 though has had minor intermittent forgetfulness noted throughout the shift. She believed she was at her house at times throughout the shift though then would correct herself and recall she is in the hospital. Pt also noted to have removed adhesive dressing to distal L hip incision as well as catheter securement device. Packaging Supervisor replaced both of these items and encouraged pt to allow these to remain in place. Morrow catheter remains patent with straw colored urinary output. 500 mL LR bolus administered to treat hypotension and tachycardia at start of shift. Pt remains on LR at 75 mLs/hr. Blood pressures still trending softer though pt asymptomatic. Dressings to L hip C/D/I. CMS to LLE intact. Pt has been denying pain when asked with rest encouraged, repositioning performed and ice provided. Staff have been assisting pt with repositioning in bed. Pt refused DENISE stockings when educated and encouraged and also requested to have gripper socks removed this morning despite education and encouragement to leave on. SCDs worn to BLEs. Mepilex sacral dressing in place to provide protection. Bed alarm on with call light within reach. ?
[2024-04-22] MEDS: SENNOSIDES 1 TAB TABLET 2 TAB PO ×2 (08:38→21:23)
[2024-04-22] MEDS: RIVAROXABAN 10 MG TABLET PO (08:38)
[2024-04-22] MEDS: CEFAZOLIN 1 GM in 0.9 % SODIUM CHLORIDE Mini-bag 100 ML IVPB (08:38)
--- NOTE | 2024-04-22 09:02 | P.ORPN_ITS ---
Subjective Subjective Time Seen by Provider: 09:03 Date Seen: 04/22/24 Principal diagnosis: Left hip fracture Interval history: Komal is comfortable this morning. She is conversive. She states she has no pain. She denies having nausea or vomiting. Ortho Exam Narrative Exam Narrative: Alert and conversive with many stories from the past, none of which correlate with our conversation. She asks me if I had to climb a ladder to get here today. Patient is in no acute distress. Converses without labored breathing. Hearing is grossly intact. She is examined lying supine in her bed. Examination of left lower extremity shows the dressings are intact. No erythema or warmth or sign of infection. Minimal edema. Nontender to the touch. She is able to plantar flex and dorsiflex her ankle. Sensation intact to light touch. Capillary refill less than 2 seconds. Const Vital Signs, click to edit/add: Vital Signs - 24 hr 04/21/24 09:05 04/21/24 09:05 04/21/24 10:05 Temperature 97.5 F L 97.5 F L Pulse Rate 90 Pulse Rate [Right Radial] 90 Respiratory Rate 18 18 18 Blood Pressure 127/76 Blood Pressure [Left Arm] Blood Pressure [Right Arm] 127/76 Pulse Oximetry 97 97 97 Oxygen Delivery Method Room Air Room Air Room Air 04/21/24 10:37 04/21/24 11:00 04/21/24 14:31 Temperature 98.1 F 97.9 F 98.1 F Pulse Rate 89 90 99 Pulse Rate [Right Radial] Respiratory Rate 18 18 12 Blood Pressure 113/61 103/58 L 82/59 L Blood Pressure [Left Arm] Blood Pressure [Right Arm] Pulse Oximetry 96 97 Oxygen Delivery Method Room Air Room Air Room Air 04/21/24 14:35 04/21/24 14:40 04/21/24 14:45 Temperature Pulse Rate 102 H 100 106 H Pulse Rate [Right Radial] Respiratory Rate 14 14 12 Blood Pressure 82/59 L 85/60 L 106/60 Blood Pressure [Left Arm] Blood Pressure [Right Arm] Pulse Oximetry 97 94 Oxygen Delivery Method Room Air Room Air Room Air 04/21/24 14:50 04/21/24 14:55 04/21/24 15:00 Temperature 98.3 F Pulse Rate 103 H 96 108 H Pulse Rate [Right Radial] Respiratory Rate 14 14 12 Blood Pressure 91/62 91/59 L 108/72 Blood Pressure [Left Arm] Blood Pressure [Right Arm] Pulse Oximetry 98 97 96 Oxygen Delivery Method Room Air Room Air Room Air 04/21/24 15:05 04/21/24 15:10 04/21/24 15:15 Temperature 97.8 F Pulse Rate 96 112 H 117 H Pulse Rate [Right Radial] Respiratory Rate 14 14 20 Blood Pressure 98/67 113/54 L 94/58 L Blood Pressure [Left Arm] Blood Pressure [Right Arm] Pulse Oximetry 95 95 98 Oxygen Delivery Method Room Air Room Air Room Air 04/21/24 15:20 04/21/24 15:35 04/21/24 15:45 Temperature 97.8 F 98.4 F Pulse Rate 114 H 114 H 108 H Pulse Rate [Right Radial] Respiratory Rate 20 16 16 Blood Pressure 111/74 100/65 107/66 Blood Pressure [Left Arm] Blood Pressure [Right Arm] Pulse Oximetry 96 95 96 Oxygen Delivery Method Room Air Room Air Room Air 04/21/24 16:00 04/21/24 16:15 04/21/24 16:30 Temperature 98.0 F Pulse Rate 109 H 106 H 100 Pulse Rate [Right Radial] Respiratory Rate 16 16 16 Blood Pressure 99/55 L 108/67 103/78 Blood Pressure [Left Arm] Blood Pressure [Right Arm] Pulse Oximetry 94 95 96 Oxygen Delivery Method Room Air Room Air Room Air 04/21/24 17:00 04/21/24 17:30 04/21/24 18:00 Temperature 97.3 F L 97.8 F Pulse Rate 105 H 102 H 108 H Pulse Rate [Right Radial] Respiratory Rate 18 16 16 Blood Pressure 96/62 111/59 L 94/69 Blood Pressure [Left Arm] Blood Pressure [Right Arm] Pulse Oximetry 96 95 96 Oxygen Delivery Method Room Air Room Air Room Air 04/21/24 19:14 04/21/24 20:08 04/21/24 21:06 Temperature 98.0 F 98.1 F 98.2 F Pulse Rate 116 H 103 H 103 H Pulse Rate [Right Radial] Respiratory Rate 16 16 16 Blood Pressure 89/72 L 94/58 L 93/69 Blood Pressure [Left Arm] Blood Pressure [Right Arm] Pulse Oximetry 98 97 98 Oxygen Delivery Method Room Air Room Air Room Air 04/21/24 22:25 04/21/24 22:26 04/21/24 22:37 Temperature 98.1 F Pulse Rate Pulse Rate [Right Radial] 95 95 Respiratory Rate 16 16 16 Blood Pressure Blood Pressure [Left Arm] 95/58 L Blood Pressure [Right Arm] Pulse Oximetry 98 98 Oxygen Delivery Method Room Air Room Air 04/22/24 02:26 04/22/24 07:28 04/22/24 07:28 Temperature 97.2 F L 98.9 F Pulse Rate Pulse Rate [Right Radial] 87 85 Respiratory Rate 18 18 18 Blood Pressure Blood Pressure [Left Arm] Blood Pressure [Right Arm] 98/57 L 118/58 L Pulse Oximetry 93 95 95 Oxygen Delivery Method Room Air Room Air Room Air Assessment and Plan Assessment and plan (1) Hip fracture: Problem details: - L intertrochanteric fracture ORIF with Dr. Archer on April 21. Status: Acute Assessment and Plan: I know Komal well, for I have been seeing her for both of her shoulders this year and injected her right shoulder for osteoarthritis on Tuesday. She had a fracture dislocation of her left proximal humerus in July when she lost her balance and fell to the floor. She moves her right shoulder and arm with ease today and states that her injection was very helpful. Komal is comfortable supine in bed this morning. Weightbear as tolerated left lower extremity. Xarelto for DVT prophylaxis. She will be going to a [place] [facility] upon discharge. [place] to coordinate. Her hemoglobin is 6.4. She will be getting blood today. Note, dictation performed with voice recognition, and as a result, wrong word or sound like substitutions may have occurred. There may be areas in the script that have gone on detected. Please consider this when interpreting information found in the chart.
--- NOTE | 2024-04-22 11:24 | PM.IMPN1 ---
Progress Note: A&P Assessment and plan (1) Hip fracture: Problem details: - L intertrochanteric fracture ORIF with Dr. Archer on April 21. No surgical complications Status: Acute (2) Discharge planning issues: Problem details: Before her fracture she was walking with a walker but independent in her own apartment. Likely will need [facility] placement for rehab prior to returning to independent living. Status: Acute (3) Stage 4 chronic kidney disease: Problem details: Baseline creatinine 1.7-1.8 with act estimated creatinine clearance of 16 an estimated GFR of 27. On admission creatinine 2.1 improved to 1.7 on day of surgery. Creatinine 1.4 postop day 1. Stop Celebrex. Continue to monitor. Status: Chronic (4) Acute blood loss anemia: Problem details: Acute blood loss anemia due to left intertrochanteric hip fracture. Status: Acute (5) Anemia in chronic kidney disease: Problem details: Macrocytic anemia. Does not appear to be iron deficient. Due to acute drop in hemoglobin with hip fracture will transfuse 1 unit of blood and have additional unit of blood available if needed intraoperatively Status: Chronic Plan Continue in hospital for management of acute blood loss anemia, chronic kidney disease, rehab from hip fracture surgery. Time Spent With Patient Total time spent: Total time spent today is 45 minutes in coordination of care and discussing with patient and other providers management of hip fracture and blood loss anemia Subjective Date Seen: 04/22/24 Interval history: Komal Monique is a 89 year old female who presented to the ER this afternoon after an accidental fall at home. She was in her closet getting batteries for [employer] when she lost her balance, falling onto left hip. She denies any preceding dizziness or lightheadedness, did not hit her head. She reports no recent illness. She reports normally she gets around well. She did have a fall in July sustaining a left shoulder fracture. She has been troubled by right shoulder pain. She was seen by her primary care doctor in January and was started on Celebrex 200 mg b.i.d.. She was seen on April 18, 3 days ago and given a shoulder injection with Depo-Medrol which gave her remarkable improvement in her pain. Diagnosis was osteoarthritis of the glenohumeral joint. 04/22/2024: Patient is postop day 1 ORIF. She required fluid bolus last night for low blood pressure and hemoglobin this morning is 6.4 leading to 2nd unit of blood transfusion today. She otherwise reports no concerns. She is not having significant hip pain. Exam Narrative: Exam Narrative: She is alert pleasant and in no distress. Mood and affect are bright and she is very talkative today. Respirations are clear to auscultation. Cardiovascular: S1, S2, regular rate and rhythm. Abdomen: Bowel sounds active. Abdomen is soft without tenderness or mass. Lower extremities without significant edema. Intact pulses and strength in her ankles. Const: Vital Signs, click to edit/add: Vital Signs - 24 hr 04/21/24 14:31 04/21/24 14:35 04/21/24 14:40 Temperature 98.1 F Pulse Rate 99 102 H 100 Pulse Rate [Right Radial] Respiratory Rate 12 14 14 Blood Pressure 82/59 L 82/59 L 85/60 L Blood Pressure [Le ft Arm] Blood Pressure [Ri ght Arm] Pulse Oximetry 97 Oxygen Delivery W[facility]od Room Air Room Air Room Air 04/21/24 14:45 04/21/24 14:50 04/21/24 14:55 Temperature 98.3 F Pulse Rate 106 H 103 H 96 Pulse Rate [Right Radial] Respiratory Rate 12 14 14 Blood Pressure 106/60 91/62 91/59 L Blood Pressure [Le ft Arm] Blood Pressure [Ri ght Arm] Pulse Oximetry 94 98 97 [facility] Room [facility] Room Air 04/21/24 15:00 04/21/24 15:05 04/21/24 15:10 Temperature 97.8 F Pulse Rate 108 H 96 112 H Pulse Rate [Right Radial] Respiratory Rate 12 14 14 Blood Pressure 108/72 98/67 113/54 L Blood Pressure [Le ft Arm] Blood Pressure [Ri ght Arm] Pulse Oximetry 96 95 95 Oxygen Delivery [facility] [facility]od Room Air Room Air Room Air 04/21/24 15:15 04/21/24 15:20 04/21/24 15:35 Temperature 97.8 F 98.4 F Pulse Rate 117 H 114 H 114 H Pulse Rate [Right Radial] Respiratory Rate 20 20 16 Blood Pressure 94/58 L 111/74 100/65 Blood Pressure [Le ft Arm] Blood Pressure [Ri ght Arm] Pulse Oximetry 98 96 95 Oxygen Delivery [facility] [facility]od Room Air Room Air Room Air 04/21/24 15:45 04/21/24 16:00 04/21/24 16:15 Temperature 98.0 F Pulse Rate 108 H 109 H 106 H Pulse Rate [Right Radial] Respiratory Rate 16 16 16 Blood Pressure 107/66 99/55 L 108/67 Blood Pressure [Le ft Arm] Blood Pressure [Ri ght Arm] Pulse Oximetry 96 94 95 Oxygen Delivery Me thod Room Air Room Air Room Air 04/21/24 16:30 04/21/24 17:00 04/21/24 17:30 Temperature 97.3 F L Pulse Rate 100 105 H 102 H Pulse Rate [Right Radial] Respiratory Rate 16 18 16 Blood Pressure 103/78 96/62 111/59 L Blood Pressure [Le ft Arm] Blood Pressure [Ri ght Arm] Pulse Oximetry 96 96 95 Oxygen Delivery Me thod Room Air Room Air Room Air 04/21/24 18:00 04/21/24 19:14 04/21/24 20:08 Temperature 97.8 F 98.0 F 98.1 F Pulse Rate 108 H 116 H 103 H Pulse Rate [Right Radial] Respiratory Rate 16 16 16 Blood Pressure 94/69 89/72 L 94/58 L Blood Pressure [Le ft Arm] Blood Pressure [Ri ght Arm] Pulse Oximetry 96 98 97 Oxygen Delivery Me thod Room Air Room Air Room Air 04/21/24 21:06 04/21/24 22:25 04/21/24 22:26 Temperature 98.2 F 98.1 F Pulse Rate 103 H Pulse Rate [Right Radial] 95 Respiratory Rate 16 16 16 Blood Pressure 93/69 Blood Pressure [Le ft Arm] 95/58 L Blood Pressure [Ri ght Arm] Pulse Oximetry 98 98 98 Oxygen Delivery Me thod Room Air Room Air Room Air 04/21/24 22:37 04/22/24 02:26 04/22/24 07:28 Temperature 97.2 F L Pulse Rate Pulse Rate [Right Radial] 95 87 Respiratory Rate 16 18 18 Blood Pressure Blood Pressure [Le ft Arm] Blood Pressure [Ri ght Arm] 98/57 L Pulse Oximetry 93 95 Oxygen Delivery Me thod Room Air Room Air 04/22/24 07:28 04/22/24 10:21 04/22/24 10:45 Temperature 98.9 F 97.5 F L 97.4 F L Pulse Rate 94 93 Pulse Rate [Right Radial] 85 Respiratory Rate 18 16 18 Blood Pressure 114/62 108/55 L Blood Pressure [Le ft Arm] Blood Pressure [Ri ght Arm] 118/58 L Pulse Oximetry 95 94 98 Oxygen Delivery Me thod Room Air Room Air Room Air 04/22/24 11:00 04/22/24 11:00 Temperature 98.4 F 98.4 F Pulse Rate 89 Pulse Rate [Right Radial] 89 Respiratory Rate 18 18 Blood Pressure 120/64 Blood Pressure [Le ft Arm] Blood Pressure [Ri ght Arm] 120/64 Pulse Oximetry 96 96 Oxygen Delivery Me thod Room Air Room Air Labs Labs: Laboratory Results - last 24 hr 04/21/24 04/22/24 Unknown 05:29 WBC 7.95 RBC 1.96 L Hgb 6.4 L* Hct 20.4 L MCV 104 H MCH 33 MCHC 31 L Plt Count 123 L Sodium 138 Potassium 4.9 BUN 33 H Creatinine 1.4 Estimated Creat Clear 21.97 Estimated GFR 36 Blood Type O Negative Antibody Screen NEGATIVE Crossmatch (AHG) See Detail
[2024-04-22 13:26] LABS: Hemoglobin* 7.3 gm/dL (12.0-16.0)
[2024-04-22] MEDS: OXYCODONE 5 MG TABLET PO (19:02)
[2024-04-23] VITALS (12 sets, daily range): BP systolic 102–147; BP diastolic 54–84; PULSE 78–90; RESP 16–18; TEMP 36.2–36.9; O2SAT 93–100
[2024-04-23 01:52] LABS: Folate, RBC 211 ng/mL (>=366)
[2024-04-23] MEDS: ACETAMINOPHEN 325 MG TABLET 650 MG PO ×4 (03:41→21:05)
[2024-04-23 05:44] LABS: Hematocrit 21.5 % (33.0-51.0); Mean Corpuscular HGB Conc 32 gm/dL (32-36); Mean Corpuscular Hemoglobin 32 pg (26-34); Mean Corpuscular Volume 101 fL (80-100); Platelet Count* 126 K/uL (140-440); Red Blood Count 2.14 m/uL (4.00-5.20); White Blood Count* 7.96 K/uL (4.50-11.00)
[2024-04-23 05:45] LABS: Hemoglobin* 6.8 gm/dL (12.0-16.0); Slide Review Reflex No
[2024-04-23 06:01] LABS: Chloride* 115 mmol/L (96-114); Potassium* 4.2 mmol/L (3.6-5.1); Sodium* 138 mmol/L (135-149)
[2024-04-23 06:04] LABS: Anion Gap 4 mEq/L (7-15); Blood Urea Nitrogen* 33 mg/dL (7-30); Carbon Dioxide* 19 mmol/L (20-32); Creatinine* 1.5 mg/dL (0.5-1.5); Estimated Glomerular Filt Rate 33 ml/min; Glucose* 105 mg/dL (60-115)
[2024-04-23 06:05] LABS: Calcium* 8.5 mg/dL (8.4-10.6)
--- NOTE | 2024-04-23 06:43 | PC.NURSE ---
End of shift note [id number]: Pt noted to be alert & oriented x 4 though does have intermittent confusion noted and needs redirection. She is transferring to bedside commode with assist of 1 using FWW and GB. Pt continent of bladder. Dressings to L hip noted to be C/D/I and CMS to LLE noted to be intact. Pt has been denying pain when asked with rest encouraged, repositioning performed, ice provided and scheduled Tylenol given. IV to R hand patent and SL. Bed alarm on and call light within reach. Hgb of 6.8 this morning with 1 unit of PRBCs currently being infused per order.
[2024-04-23] MEDS: bisacodyL 10 MG SUPP.RECT PR (06:57)
[2024-04-23] MEDS: SENNOSIDES 1 TAB TABLET 2 TAB PO ×2 (08:00→21:03)
[2024-04-23] MEDS: OXYCODONE 5 MG TABLET PO ×2 (08:01→13:51)
[2024-04-23] MEDS: RIVAROXABAN 10 MG TABLET PO (08:01)
--- NOTE | 2024-04-23 12:36 | PC.SOCIAL ---
Addendum entered and electronically signed by ALFONSO Rodriguez Student [employer] 04/23/24 16:15: PAS #: [id number]. Emailed to Lakeisha at [facility], [email or web address]. Addendum entered and electronically signed by ALFONSO Rodriguez Student [employer] 04/23/24 15:46: Pt was accepted to [facility] for short-term rehab. Pt and family are in agreement with this placement. Pt's son, Mateo, will pick pt up around 10:00 tomorrow (Tuesday) morning. [facility] is requesting discharge summary 2 hours in advance of arrival. Social work internet webmaster discussed medicare rights form with Mateo over the phone and left a copy in the pt's room. Social work to follow up. Original Note: Discharge planning: Social work internet webmaster met with pt and pt's son to discuss short-term rehab, as recommended by therapies. Family is in agreement that a rehab stay is the best option. Social work internet webmaster gave pt's son, the POA, a list of area SNFs. Pt's son is requesting social work internet webmaster look at [facility], [facility], [facility], [facility] and [facility]. [facility] and [facility] do not have any female bed openings this week. Social work internet webmaster faxed a referral packet to [facility], [facility] and [facility]. Social work internet webmaster met with family again to update them. Social work internet webmaster to follow up. Pt's son, Mateo Monique: [phone].
--- NOTE | 2024-04-23 13:31 | P.IMPN_ITS ---
Progress Note: A&P Assessment and plan (1) Hip fracture: Problem details: - L intertrochanteric fracture ORIF with Dr. Archer on April 21. No surgical complications doing and well postoperatively Status: Acute (2) Discharge planning issues: Problem details: Before her fracture she was walking with a walker but independent in her own apartment. Likely will need custodial placement for rehab prior to returning to independent living. Status: Acute (3) Stage 4 chronic kidney disease: Problem details: Baseline creatinine 1.7-1.8 with act estimated creatinine clearance of 16 an estimated GFR of 27. On admission creatinine 2.1 improved to 1.7 on day of surgery. Creatinine 1.5 postop day 2. Stop Celebrex. Continue to monitor. Status: Chronic (4) Acute blood loss anemia: Problem details: Acute blood loss anemia due to left intertrochanteric hip fracture. Status: Acute (5) Anemia in chronic kidney disease: Problem details: Macrocytic anemia. Does not appear to be iron deficient. Due to acute drop in hemoglobin with hip fracture will transfuse 1 unit of blood and have additional unit of blood available if needed intraoperatively Status: Chronic (6) Cognitive impairment: Problem details: During hospitalization for hip fracture she has exhibited episodes of acute confusion. Question of cognitive impairment versus hospital delirium or both Status: Acute Plan Continue in hospital for therapy and monitoring of anemia and bleeding and kidney function. Probable nursing home facility discharge for rehab. Time Spent With Patient Total time spent: Total time spent today is 35 minutes in coordination of care and discussing with patient, daughter and other providers management of hip fracture rehab and anemia Subjective Date Seen: 04/23/24 Interval history: Komal Monique is a 89 year old female who presented to the ER this afternoon after an accidental fall at home. She was in her closet getting batteries for [employer] when she lost her balance, falling onto left hip. She denies any preceding dizziness or lightheadedness, did not hit her head. She reports no recent illness. She reports normally she gets around well. She did have a fall in July sustaining a left shoulder fracture. She has been troubled by right shoulder pain. She was seen by her primary care doctor in January and was started on Celebrex 200 mg b.i.d.. She was seen on April 18, 3 days ago and given a shoulder injection with Depo-Medrol which gave her remarkable improvement in her pain. Diagnosis was osteoarthritis of th e glenohumeral joint. 04/22/2024: Patient is postop day 1 ORIF. She required fluid bolus last night for low blood pressure and hemoglobin this morning is 6.4 leading to 2nd unit of blood transfusion today. She otherwise reports no concerns. She is not having significant hip pain. 04/23/2024: Patient reports doing well today. Pain is been manageable. She is up walking with therapy. She is eating with a reported good appetite. Hemoglobin this morning is 6.8 so she received another unit blood transfusion. Tolerating this well. Nursing staff noticed occasional episodes of confusion. Exam Narrative: Exam Narrative: She is alert, pleasant and in no distress. Oriented to her circumstances. Respirations are clear to auscultation. Cardiovascular: S1, S2 regular rate and rhythm. Abdomen is soft without tenderness. Left hip and thigh are developing significant bruising. Ankles with minimal edema intact pulses and strength motion and sensation Const: Vital Signs, click to edit/add: Vital Signs - 24 hr 04/22/24 15:27 04/22/24 15:27 04/22/24 19:26 Temperature 98.0 F 98.2 F Pulse Rate Pulse Rate [Pulse Oximeter] Pulse Rate [Right Radial] 95 85 Respiratory Rate 18 18 18 Blood Pressure Blood Pressure [Le ft Arm] 112/57 L Blood Pressure [Ri ght Arm] 120/67 Pulse Oximetry 97 97 95 Oxygen Delivery Tx thod Room Air Room Air Room Air 04/22/24 23:00 04/22/24 23:00 04/22/24 23:20 Temperature 98.0 F Pulse Rate Pulse Rate [Pulse Oximeter] Pulse Rate [Right Radial] 77 77 Respiratory Rate 16 16 16 Blood Pressure Blood Pressure [Le ft Arm] Blood Pressure [Ri ght Arm] 99/53 L Pulse Oximetry 96 96 Oxygen Delivery Tx thod Room Air Room Air 04/23/24 03:49 04/23/24 06:33 04/23/24 06:51 Temperature 98.5 F 97.5 F L 97.6 F Pulse Rate 78 79 Pulse Rate [Pulse Oximeter] Pulse Rate [Right Radial] 83 Respiratory Rate 16 16 16 Blood Pressure 102/65 119/58 L Blood Pressure [Le ft Arm] Blood Pressure [Ri ght Arm] 139/69 Pulse Oximetry 98 96 97 Oxygen Delivery Me thod Room Air Room Air Room Air 04/23/24 07:00 04/23/24 07:00 04/23/24 07:00 Temperature 97.8 F 97.8 F Pulse Rate 85 Pulse Rate [Pulse Oximeter] Pulse Rate [Right Radial] 85 Respiratory Rate 16 16 16 Blood Pressure 123/70 Blood Pressure [Le ft Arm] 123/70 Blood Pressure [Ri ght Arm] Pulse Oximetry 98 98 98 Oxygen Delivery Me thod Room Air Room Air Room Air 04/23/24 07:30 04/23/24 08:00 04/23/24 08:30 Temperature 97.1 F L 97.5 F L 97.2 F L Pulse Rate 88 90 87 Pulse Rate [Pulse Oximeter] Pulse Rate [Right Radial] Respiratory Rate 16 18 16 Blood Pressure 147/62 H 137/67 109/84 Blood Pressure [Le ft Arm] Blood Pressure [Ri ght Arm] Pulse Oximetry 99 100 98 Oxygen Delivery Me thod Room Air Room Air Room Air 04/23/24 11:00 Temperature 98.3 F Pulse Rate Pulse Rate [Pulse Oximeter] 85 Pulse Rate [Right Radial] Respiratory Rate 18 Blood Pressure Blood Pressure [Le ft Arm] 117/54 L Blood Pressure [Ri ght Arm] Pulse Oximetry 100 Oxygen Delivery Me thod Room Air Documenting provider has reviewed patient's vital signs: yes Labs Labs: Laboratory Results - last 24 hr 04/21/24 04/21/24 04/23/24 05:53 Unknown 05:25 WBC 7.96 RBC 2.14 L Hgb 6.8 L* Hct 21.5 L MCV 101 H MCH 32 MCHC 32 Plt Count 126 L Sodium 138 Potassium 4.2 Chloride 115 H Carbon Dioxide 19 L Anion Gap 4 L BUN 33 H Creatinine 1.5 Estimated Creat Clear 20.50 Estimated GFR 33 Glucose 105 Calcium 8.5 RBC Folate Request 211 L Blood Type O Negative Antibody Screen NEGATIVE Crossmatch (AHG) See Detail
--- NOTE | 2024-04-23 18:56 | PC.NURSE ---
End of shift [id number]: Pt has been A&O with intermittent confusion/repeated statements but she is easily redirectable. VSS and afebrile today. She is Ax1 to BSC with gait belt & walker. Mepilex x2 on left hip C/D/I. Pt has minimal c/o pain but says ?ouch? with activity. Last oxycodone given @ 1350. Pt has been continent of urine, no BM today. PIV in right hand SL and C/D/I. Pt has been making attempts to offer staff members gifts of mondragon throughout the afternoon. Plan is to discharge to [facility] tomorrow 04/24, son to transport with a discharge time of 10:00AM.?
[2024-04-23] MEDS: SODIUM CHLORIDE 0.9 % (FLUSH) 10 ML SYRINGE 5 ML IVF (21:06)
[2024-04-24] MEDS: ACETAMINOPHEN 325 MG TABLET 650 MG PO ×2 (03:25→09:06)
[2024-04-24 03:38] VITALS: BP 157/73; PULSE 84; RESP 16; TEMP 36.5; O2SAT 97
--- NOTE | 2024-04-24 06:23 | PC.NURSE ---
Addendum entered by Lizzie Mack RN 04/24/24 06:31: Care note for [id number] Original Note: End of shift note: Pt alert & oriented x 4 though does have intermittent confusion noted at times and needs redirection. IV to R hand patent and SL. Pt transferring to [facility] with assist of 1 using FWW and GB and has been continent this shift. Pt has been denying pain when asked with scheduled Tylenol given, rest encouraged, repositioning performed and ice provided. VSS. SCDs worn to BLEs. Dressings to L hip noted to be C/D/I. Bed alarm on and call light within reach. Pt slept well overnight and used call light appropriately.
[2024-04-24 06:32] LABS: Mean Corpuscular HGB Conc 32 gm/dL (32-36); Mean Corpuscular Hemoglobin 32 pg (26-34); Mean Corpuscular Volume 98 fL (80-100); Platelet Count* 139 K/uL (140-440); Red Blood Count 2.54 m/uL (4.00-5.20); White Blood Count* 8.73 K/uL (4.50-11.00)
[2024-04-24 06:39] LABS: Slide Review Reflex No
[2024-04-24 07:20] VITALS: PULSE 104; RESP 20
--- NOTE | 2024-04-24 07:20 | P.DS_ITS ---
DS: Providers Provider Date Seen: 04/24/24 Date of admission: 04/20/24 15:32 Primary care physician: Blair Fletcher MD Admitting Clinician: Lashell León MD Attending Physician on discharge: Cesar Hunter MD Date of Discharge: 04/24/24 DS: Diagnosis Discharge Diagnosis (1) Hip fracture: Status: Acute Problem details: - L intertrochanteric fracture ORIF with Dr. Archer on April 21. No surgical complications doing and well postoperatively. (2) Discharge planning issues: Status: Acute Problem details: Before her fracture she was walking with a walker but independent in her own apartment. Rehab placement needed prior to return home to independent living (3) Stage 4 chronic kidney disease: Status: Chronic Problem details: Baseline creatinine 1.7-1.8 with act estimated creatinine clearance of 16 an estimated GFR of 27. On admission creatinine 2.1 improved to 1.7 on day of surgery. Creatinine 1.5 postop day 2. Stop Celebrex. Continue to monitor. (4) Acute blood loss anemia: Status: Acute Problem details: Acute blood loss anemia due to left intertrochanteric hip fracture. Received transfusion 3 units packed red cells. Hemoglobin on discharge 8.0 (5) Anemia in chronic kidney disease: Status: Chronic Problem details: Macrocytic anemia. Does not appear to be iron deficient. Vitamin B12 are low normal range so will initiate replacement. Folate levels pending. Initiate replacement with multivitamin with folate. (6) Cognitive impairment: Status: Acute Problem details: During hospitalization for hip fracture she has exhibited episodes of acute confusion. Question of cognitive impairment versus hospital delirium or both DS: Summary Hospital Course Hospital Course: Komal Monique is a 89 year old female who presented to the ER this afternoon after an accidental fall at home. She was in her closet getting batteries for [employer] decorations when she lost her balance, falling onto left hip. She denies any preceding dizziness or lightheadedness, did not hit her head. She reports no recent illness. She reports normally she gets around well. She did have a fall in July sustaining a left shoulder fracture. She has been troubled by right shoulder pain. She was seen by her primary care doctor in January and was started on Celebrex 200 mg b.i.d.. She was seen on April 18, 3 days ago and given a shoulder injection with Depo-Medrol which gave her remarkable improvement in her pain. Diagnosis was osteoarthritis of the glenohumeral joint. She was found to have a 3 part intertrochanteric fracture. She underwent ORIF with Dr. Archer on 04/21/2024. There were no operative complications. Patient had macrocytic anemia with a hemoglobin of 9.8 prior to the surgery. Hemoglobin dropped to a low of 6.4 due to acute blood loss from her fracture. During h ospital stay she received a total of 3 units blood transfusion. Discharge hemoglobin is 8.0. She has pre-existing diagnosis of anemia due to chronic kidney disease. Additional evaluation of macrocytic anemia in the hospital included a low normal vitamin B12 level of 273, a low RBC folate level up to 111 and a normal reticulocyte count. She was started on vitamin B12 and folate at discharge. Status at Discharge Functional status at discharge: uses cane/walker Overall status at discharge: patient is progressing back to baseline Time Spent with Patient Time attestation: Total time spent providing and/or coordinating discharge services: 45 minutes Time spent: Greater than 30 minutes Exam Narrative: Exam Narrative: She is alert and appears in no distress. Pleasant. Forgetful. Breathing is unlabored. She moves her lower extremities well. Some bruising in her left thigh. Const: Vital Signs, click to edit/add: Vital Signs - 24 hr 04/23/24 07:30 04/23/24 08:00 04/23/24 08:30 Temperature 97.1 F L 97.5 F L 97.2 F L Pulse Rate 88 90 87 Pulse Rate [Pulse Oximeter] Respiratory Rate 16 18 16 Blood Pressure 147/62 H 137/67 109/84 Blood Pressure [Le ft Arm] Blood Pressure [Ri ght Arm] Pulse Oximetry 99 100 98 Oxygen Delivery Me thod Room Air Room Air Room Air 04/23/24 11:00 04/23/24 15:00 04/23/24 15:00 Temperature 98.3 F Pulse Rate Pulse Rate [Pulse Oximeter] 85 90 Respiratory Rate 18 18 18 Blood Pressure Blood Pressure [Le ft Arm] 117/54 L Blood Pressure [Ri ght Arm] Pulse Oximetry 100 98 Oxygen Delivery Me thod Room Air Room Air 04/23/24 15:00 04/23/24 20:10 04/23/24 23:00 Temperature 97.6 F 98.2 F Pulse Rate Pulse Rate [Pulse Oximeter] 90 87 80 Respiratory Rate 18 16 16 Blood Pressure Blood Pressure [Le ft Arm] Blood Pressure [Ri ght Arm] 119/67 130/67 Pulse Oximetry 98 93 Oxygen Delivery Me thod Room Air Room Air 04/23/24 23:16 04/23/24 23:16 04/24/24 03:38 Temperature 97.6 F 97.7 F Pulse Rate Pulse Rate [Pulse Oximeter] 80 84 Respiratory Rate 16 16 16 Blood Pressure Blood Pressure [Le ft Arm] Blood Pressure [Ri ght Arm] 121/65 157/73 H Pulse Oximetry 97 97 97 Oxygen Delivery Me thod Room Air Room Air Room Air Documenting provider has reviewed patient's vital signs: yes DS: Data Data Completed and Pending Labs on day of discharge: Labs from last 24 hours 04/24/24 04/21/24 06:03 Unknown WBC 8.73 RBC 2.54 L Hgb 8.0 L Hct 25.0 L MCV 98 MCH 32 MCHC 32 Plt Count 139 L Crossmatch (AHG) See Detail Discharge Plan Discharge Disposition: [facility] Date of Admission: 04/20/24 15:32 Attending Physician on Admission: Lashell León Attending Provider on Discharge: Junior Hunter Primary Care Provider: Blair Fletcher Condition: Improved Discharge Medications: New polyethylene glycol 3350 [Miralax] 17 gram Powder In Packet 17 g PO DAILY PRN (Reason: Constipation) Qty: 238 0RF oxycodone 5 mg Tablet 2.5 mg PO Q4H PRN (Reason: Pain) Qty: 20 0RF Xarelto 10 mg Tablet 10 mg PO DAILY Qty: 32 0RF acetaminophen 325 mg Tablet 650 mg PO Q6H Qty: 100 0RF multivitamin [Multiple Vitamins] Tablet 1 tab PO DAILY Qty: 30 0RF cyanocobalamin (vitamin B-12) 1,000 mcg tablet 1,000 mcg PO DAILY Qty: 30 0RF sennosides [senna] 8.6 mg tablet 8.6 mg PO BID PRN (Reason: constipation) Qty: 30 0RF Continued systaine eye drops 1 drp instillation TID calcium carbonate 500 mg calcium (1,250 mg) tablet 1,000 mg PO DAILY vitamin E mixed 400 unit capsule 400 unit PO QDAY cholecalciferol (vitamin D3) 50 mcg (2,000 unit) capsule 50 mcg PO QDAY famotidine 20 mg tablet 20 mg PO DAILY PRN Rx Instructions: PRESCRIBED DAILY BUT ONLY USES WHEN SHE NEEDS IT furosemide 20 mg tablet 20 mg PO DAILY PRN Rx Instructions: PRESCRIBED DAILY BUT ONLY USES WHEN SHE NEEDS IT losartan 100 mg tablet 100 mg PO DAILY Qty: 90 1RF escitalopram oxalate 5 mg tablet 5 mg PO DAILY Qty: 90 1RF Held aspirin 81 mg capsule 81 mg PO DAILY Hold Instructions: Resume on 04/27/24. Hold while taking rivaroxaban for postop VTE prophylaxis Discontinued celecoxib [Celebrex] 200 mg capsule 200 mg PO BID Qty: 60 1RF Discharge Orders: Discharge Order (Routine); Ordered 04/24/24 Ordered By: Junior Hunter Activity Level: Up with assist, Weight Bearing as Tolerated and Use Walker Activity Detail: PT and OT at [facility] Return to clinic in [address] Archer, please make appt for Komal Keep dressing on for 1 week. Dressing is waterproof. May shower. Surgical glue covers the wound. Ice and elevate operative extremity without restriction. Swelling and bruising will worsen within the first week. When swelling occurs, elevate the extremity above heart level several times a day and gently massage/pull soft tissue swelling toward hip. This allows gravity to assist in eliminating the swelling/edema. Wear compression stockings/omari bandages as needed for swelling. Ambulate frequently as tolerated. Do not drink alcohol while taking narcotic pain medication. Notify Orthopedics with any questions or concerns. ([phone]) Discharge Diet: Regular Follow Up Appointments: Blair Fletcher MD [Primary Care Provider] - [facility] Hospital Course: Komal Monique is a 89 year old female who presented to the ER this afternoon after an accidental fall at home. She was in her closet getting batteries for [employer] decorations when she lost her balance, falling onto left hip. She denies any preceding dizziness or lightheadedness, did not hit her head. She reports no recent illness. She reports normally she gets around well. She did have a fall in July sustaining a left shoulder fracture. She has been troubled by right shoulder pain. She was seen by her primary care doctor in January and was started on Celebrex 200 mg b.i.d.. She was seen on April 18, 3 days ago and given a shoulder injection with Depo-Medrol which gave her remarkable improvement in her pain. Diagnosis was osteoarthritis of the glenohumeral joint. She was found to have a 3 part intertrochanteric fracture. She underwent ORIF with Dr. Archer on 04/21/2024. There were no operative complications. Patient had macrocytic anemia with a hemoglobin of 9.8 prior to the surgery. Hemoglobin dropped to a low of 6.4 due to acute blood loss from her fracture. During hospital stay she received a total of 3 units blood transfusion. Discharge hemoglobin is 8.0. She has pre-existing diagnosis of anemia due to chronic kidney disease. Additional evaluation of macrocytic anemia in the hospital included a low normal vitamin B12 level of 273, a low RBC folate level up to 111 and a normal reticulocyte count. She was started on vitamin B12 and folate at discharge. Admit to: SNF Discharge Potential: Good Length of Stay: <30 days Can use facility standing orders?: Yes Code Status: DNR/DNI TEDs: Bilateral Knee Rehab Potential: Good Therapy: Physical Therapy and Occupational Therapy Therapy Orders: Evaluate and Treat Lab Orders: CBC, basic metabolic panel in one week
[2024-04-24 07:22] VITALS: BP 141/81; PULSE 104; RESP 20; TEMP 36.5; O2SAT 97
[2024-04-24 08:04] VITALS: RESP 20; O2SAT 97
[2024-04-24] MEDS: RIVAROXABAN 10 MG TABLET PO (09:06)
[2024-04-24] MEDS: SODIUM CHLORIDE 0.9 % (FLUSH) 10 ML SYRINGE 5 ML IVF (09:07)
--- NOTE | 2024-04-24 09:54 | PC.SOCIAL ---
Discharge planning: Called Lakeisha at [facility] [phone] and confirmed she has received the secure emailed discharge information. Lakeisha confirmed pt can arrive this morning around 11:00. Pt to be transported by her son in a private vehicle. RN to give nurse to nurse report to [phone].
--- NOTE | 2024-04-24 13:15 | PC.NURSE ---
DC: Pt alert, oriented and vitally stable, though does have episodes of intermittent confusion. Pt dressing C/D/I, refuses ice pack to op site, pt states ?it makes me too cold.? Pt using bedside commode, tolerates well. Nurse to nurse given. Discharge information given to Pt and son, marcus folder given to handoff to facility. Pt DC to [facility]
== END 2024-04-24 10:13 | DRG 481 ==
LOC: ED 13:38 → MEDSURG 14:53
PROVIDERS: Family Medicine; Orthopaedic Surgery; Admitting Provider Family Medicine; Emergency Provider Emergency Medicine Emergency Medical Services; PCP Family Medicine; Visit Provider Family Medicine
PROC: (CPT 27245; principal; 2024-04-21 12:00)
DX: S72.142A Displaced intertrochanteric fracture of left femur, initial encounter for closed fracture (principal); D62 Acute posthemorrhagic anemia; N18.4 Chronic kidney disease, stage 4 (severe); W18.30XA Fall on same level, unspecified, initial encounter; Z91.81 History of falling; Y92.019 Unspecified place in single-family (private) house as the place of occurrence of the external cause; E78.2 Mixed hyperlipidemia; I12.9 Hypertensive chronic kidney disease with stage 1 through stage 4 chronic kidney disease, or unspecified chronic kidney disease; D53.9 Nutritional anemia, unspecified; J45.909 Unspecified asthma, uncomplicated; M81.0 Age-related osteoporosis without current pathological fracture; R41.81 Age-related cognitive decline; Z79.82 Long term (current) use of aspirin; F32.A Depression, unspecified
CPT/HCPCS: 01210; 36415; 36430; 51701; 71045; 73502; 73551; 73552; 76000; 80048; 82270; 82565; 82607; 82746; 82747; 83540; 83550; 84132; 84295; 84520; 85018; 85025; 85027; 85045; 86850; 86900; 86901; 86922; 93005; 97110; 97116; 97161; 97165; 97530; 97535; 99100; 99140; 99285; A9270; C1713; J0690; J1100; J2270; J2371; J2470; J2704; J3010; J7030; J7120; P9016